=== PATIENT | male | born 1935 | race Caucasian/White ===

== ENCOUNTER 2019-06-20 10:27 | Inpatient (IN) | payer MEDICARE, BC ==
--- NOTE | 2019-06-20 11:33 | CT ---
EXAMINATION TYPE: CT brain wo con DATE OF EXAM: 06/20/2019 COMPARISON: None HISTORY: Weakness and speech difficulties. CT DLP: 1172.4 mGycm Automated exposure control for dose reduction was used. FINDINGS: There is no acute intracranial hemorrhage or midline shift identified. There is diffuse v entricular and sulcal prominence consistent with diffuse age-related cerebral atrophy. There is low- attenuation in the periventricular white matter consistent with chronic small vessel ischemic change. The globes are intact and the visualized sinuses are clear other than scant mucosal thickening in t he ethmoid sinuses. Large arachnoid granulations are seen within the frontal region. IMPRESSION: No acute intracranial hemorrhage or midline shift. There is diffuse age-related cerebra l atrophy and chronic small vessel ischemic change noted.
[2019-06-20 11:38] LABS: Basophils # (A) 0.1 k/uL (0-0.2); Basophils % (A) 1 %; Eosinophils # (A) 0.9 k/uL (0-0.7); Eosinophils % (A) 8 %; HCT 38.7 % (39.0-53.0); HGB 12.8 gm/dL (13.0-17.5); Lymphocytes # (A) 1.6 k/uL (1.0-4.8); Lymphocytes % (A) 13 %; MCH 29.5 pg (25.0-35.0); MCV 89.3 fL (80.0-100.0); Mean Platelet Volume 5.8; Monocytes # (A) 0.8 k/uL (0-1.0); Monocytes % (A) 7 %; Neutrophils # (A) 8.4 k/uL (1.3-7.7); Neutrophils % (A) 71 %; Platelet Count 356 k/uL (150-450); RBC 4.33 m/uL (4.30-5.90); RDW 14.1 % (11.5-15.5); WBC 11.8 k/uL (3.8-10.6)
--- NOTE | 2019-06-20 11:43 | XR ---
EXAMINATION TYPE: XR chest 2V DATE OF EXAM: 06/20/2019 COMPARISON: None INDICATION: Altered mental status, history of emphysema. TECHNIQUE: Frontal and lateral views of the chest are obtained. FINDINGS: The heart size is normal. The pulmonary vasculature is normal. Mild infiltrate is at the right middle lobe lung base. Lungs otherwise appear clear. There is some mi ld hyperinflation. IMPRESSION: 1. Mild infiltrate at the right lung base frontal projection. Correlate for atelectasis or mild pneum onia.
[2019-06-20 11:50] LABS: Albumin 3.7 g/dL (3.5-5.0); Calcium 9.7 mg/dL (8.4-10.2); Total Bilirubin 0.8 mg/dL (0.2-1.3); Total Protein 6.9 g/dL (6.3-8.2)
[2019-06-20 11:55] LABS: Potassium 4.7 mmol/L (3.5-5.1)
[2019-06-20 11:59] LABS: INR 0.9 (<1.2); Partial Thromboplastin Time 25.3 sec (22.0-30.0); Prothrombin Time 10.2 sec (9.0-12.0)
--- NOTE | 2019-06-20 12:52 | CT ---
EXAMINATION TYPE: CT angio head neck DATE OF EXAM: 06/20/2019 HISTORY: Weakness and speech difficulties COMPARISON: None CT DLP: 433.2 mGycm. Automated Exposure Control for Dose Reduction was Utilized. TECHNIQUE: CTA scan of the neck is performed with IV Contrast, patient injected with 65 mL of Isovue 370, axial images are obtained, coronal and sagittal reformatted images are reviewed. Three-D recons tructed images are created on an independent workstation and reviewed. Source images are reviewed. FINDINGS: Carotid/Vascular Structures: There is a three-vessel arch. Left vertebral artery is slightly more pro minent than the right. These appear to be patent to the level of the skull base. Internal carotid art eries are patent to the skull base. The carotid bifurcations are well visualized. Atheromatous plaqui ng and calcification is present. Some mild narrowing of the left proximal internal carotid artery may be present. Significant flow-limiting stenosis is not identified. Cervical of Benitez: Vertebral basilar system appears normal. Posterior cerebral vasculature is unrema rkable. Internal carotid arteries bifurcate normally into A1 and M1 segments. A2 segments are normal. The anterior communicating artery is patent. Posterior communicating arteries are not identified. IMPRESSION: 1. No flow-limiting stenosis bilateral carotid bifurcations. Mild narrowing without stenosis on the l eft is present. 2. Normal minto of [place]
[2019-06-20] MEDS ORDERED: cefTRIAXone IN SWFI 1,000 MG/10 ML SYRINGE IVP STA (13:07)
[2019-06-20] MEDS ORDERED: AZITHROMYCIN 500 MG in SODIUM CHLORIDE 0.9% 250 ML IVPB STA (13:08)
--- NOTE | 2019-06-20 13:08 | ED ---
General Adult HPI - General Chief complaint: Neuro Symptoms/Deficit Stated complaint: dysphagia Time Seen by Provider: 06/20/19 10:35 Source: patient, EMS Mode of arrival: EMS Limitations: no limitations - History of Present Illness Initial comments: The patient is an 84 year old male with past medical history of COPD, hypertension and prostate disorder presents to the emergency department with reported transient confusion and weakness. is at bedside and helps provide the history. The patient states that he was in his room attempting to make his bed when he woke up this morning. He was grabbing at the sheets with his right hand and felt as if he had normal coordination. He then felt extremely off balance. He went to the living room where he sat in a chair. attempted to talk to him however he was having aphasic speech. Because of that she did call 911 who brought the patient into the emergency room. Symptoms lasted for appro ximate 45 minutes before they spontaneously resolved. Patient arrives to the with an NIH of 0. Denies any confusion or speech difficulties at this time. He is not on any blood thinners. Denies any unilateral numbness or weakness at this time. No ripping or transitioned to his back. Denies any abdominal pain. No headaches or visual changes. Denies any fevers or neck stiffness. There are no other alleviating, precipitating or modifying factors - Related Data Home Medications Medication Instructions Recorded Confirmed Fluticasone Propionate [Flovent 2 puff INHALATION DAILY 01/06/16 06/20/19 Hfa 110 mcg] Latanoprost [Xalatan 0.005%] 1 drop BOTH EYES HS 01/06/16 06/20/19 Multivitamins, Thera [Multivitamin 1 tab PO DAILY 01/06/16 06/20/19 (formulary)] amLODIPine [Norvasc] 2.5 mg PO QAM 01/06/16 06/20/19 Aspirin EC [Ecotrin Low Dose] 162 mg PO DAILY PRN 06/20/19 06/20/19 Cyanocobalamin (Vitamin B-12) 1,000 mcg PO DAILY 06/20/19 06/20/19 [Vitamin B-12] Fish Oil/Dha/Epa [Fish Oil 1,200 1 cap PO DAILY 06/20/19 06/20/19 mg Fish Oil] Vit C/E/Zn/Coppr/Lutein/Zeaxan 1 cap PO BID 06/20/19 06/20/19 [Preservision Areds 2 Softgel] Previous Rx's Medication Instructions Recorded Clopidogrel [Plavix] 75 mg PO DAILY #21 tab 06/22/19 Allergies Allergy/AdvReac Type Severity Reaction Status Date / Time levofloxacin Allergy reacted Verified 06/20/19 12:02 with prednisone combination [id number]-[id number] Reductase AdvReac muscle pain Verified 06/20/19 12:02 Inhibitor sulfamethoxazole AdvReac Unknown Verified 06/20/19 12:02 [From Bactrim] trimethoprim [From Bactrim] AdvReac Unknown Verified 06/20/19 12:02 Review of Systems ROS Statement: Those systems with pertinent positive or pertinent negative responses have been documented in the HPI. ROS Other: All systems not noted in ROS Statement are negative. Past Medical History Past Medical History: COPD, Hypertension, Prostate Disorder Additional Past Medical History / Comment(s): AUTOIMMUNE DISORDERS, POLYMYALGIA RHEUMATICA, TEMPORAL ARTERITIS History of Any Multi-Drug Resistant Organisms: None Reported Past Surgical History: Appendectomy, Back Surgery, Tonsillectomy Additional Past Surgical History / Comment(s): MAYCOL CATARACTS Past Anesthesia/Blood Transfusion Reactions: No Reported Reaction Past Psychological History: No Psychological Hx Reported Smoking Status: Former smoker Past Alcohol Use History: None Reported Past Drug Use History: None Reported - Past Family History Father Family Medical History: Renal Disease General Exam Limitations: no limitations General appearance: alert, in no apparent distress Head exam: Present: atraumatic, normocephalic, normal inspection Eye exam: Present: normal appearance, PERRL, EOMI. Absent: scleral icterus, conjunctival injection, periorbital swelling ENT exam: Present: normal exam, mucous membranes moist Neck exam: Present: normal inspection. Absent: tenderness, meningismus, lymphadenopathy Respiratory exam: Present: normal lung sounds bilaterally. Absent: respiratory distress, wheezes, rales, rhonchi, stridor Cardiovascular Exam: Present: regular rate, normal rhythm, normal heart sounds. Absent: systolic murmur, diastolic murmur, rubs, gallop, clicks GI/Abdominal exam: Present: soft, normal bowel sounds. Absent: distended, tenderness, guarding, rebound, rigid Extremities exam: Present: normal inspection, full ROM, normal capillary refill. Absent: tenderness, pedal edema, joint swelling, calf tenderness Back exam: Present: normal inspection Neurological exam: Present: alert, oriented X3, CN II-XII intact Psychiatric exam: Present: normal affect, normal mood Skin exam: Present: warm, dry, intact, normal color. Absent: rash Course Vital Signs 06/20/19 06/20/19 06/20/19 10:35 10:37 11:00 Temperature 98.1 F Pulse Rate 75 Respiratory 18 Rate Blood Pressure 175/73 175/73 O2 Sat by Pulse 98 100 Oximetry 06/20/19 06/20/19 06/20/19 11:30 12:30 13:00 Temperature Pulse Rate 69 66 65 Respiratory 12 14 10 L Rate Blood Pressure 126/75 140/77 152/84 O2 Sat by Pulse 100 97 98 Oximetry 06/20/19 06/20/19 13:30 14:00 Temperature Pulse Rate 67 70 Respiratory 11 L 16 Rate Blood Pressure 148/80 163/78 O2 Sat by Pulse Oximetry EKG Findings - EKG Comments: EKG Findings:: EKG demonstrates normal sinus rhythm with ventricular rate of 72. DE interval 130. QRS 94. QTC 424. No acute ST segment elevations or depressions concerning for ischemic changes Medical Decision Making - Medical Decision Making Upon arrival the patient was placed in room 4. NIH is performed and is 0. Peripheral IV is established. I did recommend laboratory studies and a CT the patient's brain. CBC shows a white blood cell count of 11.8. Creatinine is 1.2 which that the patient's baseline. Troponin is negative. The patient was sent for CT of his brain which demonstrated no acute intracranial hemorrhage or midline shift. Diffuse age-related cerebral atrophy and chronic small vessel ischemic disease. I did send the patient back for a CT angiography which demonstrated no flow limiting stenosis of the bilateral carotid bifurcations. Mild narrowing without stenosis on the left. He should have serial neurologic exams which continues to demonstrate a normal neuro exam. I discussed the diagn osis, differential and treatment options. I did recommend hospitalization for neurology evaluation which patient did agree. I discussed case with Dr. sterling who accepted admission. I'll consult Dr. Valentine. Patient remained in stable condition awaiting a bed on the floor - Lab Data Result diagrams: 06/20/19 11:25 06/20/19 11:25 Lab Results 06/20/19 06/20/19 06/20/19 Range/Units 11:25 11:25 11:25 WBC 11.8 H (3.8-10.6) k/uL RBC 4.33 (4.30-5.90) m/uL Hgb 12.8 L (13.0-17.5) gm/dL Hct 38.7 L (39.0-53.0) % MCV 89.3 (80.0-100.0) fL MCH 29.5 (25.0-35.0) pg MCHC 33.0 (31.0-37.0) g/dL RDW 14.1 (11.5-15.5) % Plt Count 356 (150-450) k/uL Neutrophils % 71 % Lymphocytes % 13 % Monocytes % 7 % Eosinophils % 8 % Basophils % 1 % Neutrophils # 8.4 H (1.3-7.7) k/uL Lymphocytes # 1.6 (1.0-4.8) k/uL Monocytes # 0.8 (0-1.0) k/uL Eosinophils # 0.9 H (0-0.7) k/uL Basophils # 0.1 (0-0.2) k/uL PT 10.2 (9.0-12.0) sec INR 0.9 (<1.2) APTT 25.3 (22.0-30.0) sec Sodium 139 (137-145) mmol/L Potassium 4.7 (3.5-5.1) mmol/L Chloride 104 (98-107) mmol/L Carbon Dioxide 26 (22-30) mmol/L Anion Gap 9 mmol/L BUN 24 H (9-20) mg/dL Creatinine 1.28 H (0.66-1.25) mg/dL Est GFR (CKD-EPI)AfAm 58 (>60 ml/min/1.73 sqM) Est GFR (CKD-EPI)NonAf 50 (>60 ml/min/1.73 sqM) Glucose 92 (74-99) mg/dL Estimated Ave Glu mg/dL Hemoglobin A1c (4.0-6.0) % Calcium 9.7 (8.4-10.2) mg/dL Total Bilirubin 0.8 (0.2-1.3) mg/dL AST 27 (17-59) U/L ALT 22 (21-72) U/L Alkaline Phosphatase 64 (38-126) U/L Troponin I (0.000-0.034) ng/mL Total Protein 6.9 (6.3-8.2) g/dL Albumin 3.7 (3.5-5.0) g/dL Triglycerides (<150) mg/dL Cholesterol (<200) mg/dL LDL Cholesterol, Calc (0-99) mg/dL HDL Cholesterol (40-60) mg/dL TSH (0.465-4.680) mIU/L 06/20/19 06/20/19 06/20/19 Range/Units 11:25 11:25 11:25 WBC (3.8-10.6) k/uL RBC (4.30-5.90) m/uL Hgb (13.0-17.5) gm/dL Hct (39.0-53.0) % MCV (80.0-100.0) fL MCH (25.0-35.0) pg MCHC (31.0-37.0) g/dL RDW (11.5-15.5) % Plt Count (150-450) k/uL Neutrophils % % Lymphocytes % % Monocytes % % Eosinophils % % Basophils % % Neutrophils # (1.3-7.7) k/uL Lymphocytes # (1.0-4.8) k/uL Monocytes # (0-1.0) k/uL Eosinophils # (0-0.7) k/uL Basophils # (0-0.2) k/uL PT (9.0-12.0) sec INR (<1.2) APTT (22.0-30.0) sec Sodium (137-145) mmol/L Potassium (3.5-5.1) mmol/L Chloride (98-107) mmol/L Carbon Dioxide (22-30) mmol/L Anion Gap mmol/L BUN (9-20) mg/dL Creatinine (0.66-1.25) mg/dL Est GFR (CKD-EPI)AfAm (>60 ml/min/1.73 sqM) Est GFR (CKD-EPI)NonAf (>60 ml/min/1.73 sqM) Glucose (74-99) mg/dL Estimated Ave Glu mg/dL 123 Hemoglobin A1c 5.9 (4.0-6.0) % Calcium (8.4-10.2) mg/dL Total Bilirubin (0.2-1.3) mg/dL AST (17-59) U/L ALT (21-72) U/L Alkaline Phosphatase (38-126) U/L Troponin I <0.012 (0.000-0.034) ng/mL Total Protein (6.3-8.2) g/dL Albumin (3.5-5.0) g/dL Triglycerides 105 (<150) mg/dL Cholesterol 178 (<200) mg/dL LDL Cholesterol, Calc 101 H (0-99) mg/dL HDL Cholesterol 56 (40-60) mg/dL TSH (0.465-4.680) mIU/L 06/20/19 Range/Units 11:25 WBC (3.8-10.6) k/uL RBC (4.30-5.90) m/uL Hgb (13.0-17.5) gm/dL Hct (39.0-53.0) % MCV (80.0-100.0) fL MCH (25.0-35.0) pg MCHC (31.0-37.0) g/dL RDW (11.5-15.5) % Plt Count (150-450) k/uL Neutrophils % % Lymphocytes % % Monocytes % % Eosinophils % % Basophils % % Neutrophils # (1.3-7.7) k/uL Lymphocytes # (1.0-4.8) k/uL Monocytes # (0-1.0) k/uL Eosinophils # (0-0.7) k/uL Basophils # (0-0.2) k/uL PT (9.0-12.0) sec INR (<1.2) APTT (22.0-30.0) sec Sodium (137-145) mmol/L Potassium (3.5-5.1) mmol/L Chloride (98-107) mmol/L Carbon Dioxide (22-30) mmol/L Anion Gap mmol/L BUN (9-20) mg/dL Creatinine (0.66-1.25) mg/dL Est GFR (CKD-EPI)AfAm (>60 ml/min/1.73 sqM) Est GFR (CKD-EPI)NonAf (>60 ml/min/1.73 sqM) Glucose (74-99) mg/dL Estimated Ave Glu mg/dL Hemoglobin A1c (4.0-6.0) % Calcium (8.4-10.2) mg/dL Total Bilirubin (0.2-1.3) mg/dL AST (17-59) U/L ALT (21-72) U/L Alkaline Phosphatase (38-126) U/L Troponin I (0.000-0.034) ng/mL Total Protein (6.3-8.2) g/dL Albumin (3.5-5.0) g/dL Triglycerides (<150) mg/dL Cholesterol (<200) mg/dL LDL Cholesterol, Calc (0-99) mg/dL HDL Cholesterol (40-60) mg/dL TSH 3.660 (0.465-4.680) mIU/L Disposition Clinical Impression: TIA (transient ischemic attack) Disposition: ADMITTED IP TO THIS [facility] Condition: Serious Is patient prescribed a controlled substance at d/c from ED?: No Decision to Admit Reason: Admit from EC Decision Date: 06/20/19 Decision Time: 13:10
[2019-06-20] MEDS ORDERED: NALOXONE 0.4 MG/ML 1 ML VIAL IV PRN (13:10)
[2019-06-20] MEDS ORDERED: ASPIRIN 81 MG PO PRN (13:11)
[2019-06-20] MEDS: VIT A,C & E-LUTEIN-MINERALS 1 EACH TAB PO SCH (20:33)
[2019-06-20] MEDS: amLODIPine 2.5 MG TAB PO SCH (20:33)
[2019-06-20] MEDS: LATANOPROST 0.005% OPHTH DROPS 2.5 ML BTL BOTH EYES SCH (20:33)
[2019-06-20] MEDS: ENOXAPARIN 40 MG/0.4 ML SYRINGE SQ SCH (21:56)
--- NOTE | 2019-06-20 22:01 | P.HPIM ---
History of Present Illness H&P Date: 06/20/19 Chief Complaint: Changes speech and discoordination History of presenting complaint: This is a very pleasant 84-year-old patient of Dr. Cruz. Chronic stable medical conditions include COPD, polymyalgia rheumatica, temporal arteritis, osteoarthritis. This morning patient got up to stroke but the bed sheets straight on his back. He felt he could not coordinate his left hand with the bed sheet. Went to the bathroom and then came downstairs he told the was not feeling right. His speech was off. Patient had a baseline does a lot of trouble with his balance and does use a cane and a walker. No change in vision. Daughter baseline patient has trouble with his vision EMS was called out. A symptoms got a bit better. Patient not falling to one side. Does no headache. Initial computed tomography scan of the brain and CT angiogram of the brain did not show any acute event. Neurology was consulted patient admitted for the same. Review of systems: GEN.: None EYES: None HEENT: Hearted vision chronically NECK: None RESPIRATORY: None CARDIOVASCULAR: None GASTROINTESTINAL: None GENITOURINARY: None MUSCULOSKELETAL: [Arthritic pain in the joints LYMPHATICS: None HEMATOLOGICAL: None PSYCHIATRY: None NEUROLOGICAL: Forgetful, altered gait Social history: No alcohol. Smoked for 35 years stopped in 1985. . Retired electro mechanical engineer. Does use a cane and a walker. Physical examination: VITAL SIGNS: 98.1, 75, 18, 175/73, 100% room air GENERAL: BMI 21.4, sitting up in bed, comfortable. EYES: Pupils equal. Conjunctiva normal. HEENT: External appearance of nose and ears normal, oral cavity grossly normal. NECK: JVD not raised; masses not palpable. HEART: First and second heart sounds are normal; no edema. LUNGS: Respiratory rate normal; decreased breath sounds. ABDOMEN: Soft, nontender, liver spleen not palpable, no masses palpable. PSYCH: Alert and oriented x3; mood and affect normal. NEUROLOGICAL: Left-sided dysdiadochokinesia, past-pointing, poor coordination the left like t. LYMPHATICS: No lymph nodes palpable in the axilla and neck INVESTIGATIONS, reviewed in the clinical context: White count 11.8 hemoglobin 12.8 platelets 356 potassium 4.7 bun 24 creatinine 1.28 Labs from December 2015 show bun of 29 and creatinine 1.4 Computed tomography scan brain-chronic age-related changes CT angiogram of the head and neck-normal grindstone of [place]. No critical stenosis. EKG tracing personally reviewed by me-normal sinus rhythm Chest x-ray film personally reviewed by me-possibly chronic finding Assessment: -This is a patient this morning was finding difficulty coordinating his left hand on to his bed sheets also slurring of his speech. Patient has chronic gait dysfunction does no change in vision or headache. On clinical examination has left-sided cerebellar signs. Suspect underlying cerebellar infarct. Findings overall does suffer the present time. 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 We will add Lipitor. Neurology is consulted. PTOT consulted and ordered a MRI of the brain. Care was discussed with the patient. Questions were answered. Past Medical History Past Medical History: COPD, Hypertension, Prostate Disorder Additional Past Medical History / Comment(s): AUTOIMMUNE DISORDERS, POLYMYALGIA RHEUMATICA, TEMPORAL ARTERITIS History of Any Multi-Drug Resistant Organisms: None Reported Past Surgical History: Appendectomy, Back Surgery, Tonsillectomy Additional Past Surgical History / Comment(s): MAYCOL CATARACTS Past Anesthesia/Blood Transfusion Reactions: No Reported Reaction Past Psychological History: No Psychological Hx Reported Smoking Status: Former smoker Past Alcohol Use History: None Reported Past Drug Use History: None Reported - Past Family History Father Family Medical History: Renal Disease Medications and Allergies Home Medications Medication Instructions Recorded Confirmed Type Fluticasone Propionate [Flovent 2 puff INHALATION DAILY 01/06/16 06/20/19 History Hfa 110mcg] Latanoprost [Xalatan 0.005%] 1 drop BOTH EYES HS 01/06/16 06/20/19 History Multivitamins, Thera [Multivitamin] 1 tab PO DAILY 01/06/16 06/20/19 History amLODIPine [Norvasc] 2.5 mg PO QAM 01/06/16 06/20/19 History Aspirin EC [Ecotrin Low Dose] 162 mg PO DAILY PRN 06/20/19 06/20/19 History Cyanocobalamin (Vitamin B-12) 1,000 mcg PO DAILY 06/20/19 06/20/19 History [Vitamin B-12] Fish Oil/Dha/Epa [Fish Oil 1,200 1 cap PO DAILY 06/20/19 06/20/19 History mg Fish Oil] Vit C/E/Zn/Coppr/Lutein/Zeaxan 1 cap PO BID 06/20/19 06/20/19 History [Preservision Areds 2 Softgel] Allergies Allergy/AdvReac Type Severity Reaction Status Date / Time levofloxacin Allergy reacted Verified 06/20/19 12:02 with prednisone combination Xphwwhk-Ceb-Woq Reductase AdvReac muscle pain Verified 06/20/19 12:02 Inhibitor sulfamethoxazole AdvReac Unknown Verified 06/20/19 12:02 [From Bactrim] trimethoprim [From Bactrim] AdvReac Unknown Verified 06/20/19 12:02 Physical Exam Vitals: Vital Signs Temp Pulse Pulse Resp BP BP Pulse Ox 06/20/19 14:45 73 16 06/20/19 14:14 98.6 F 73 16 100/49 97 06/20/19 14:00 70 16 163/78 06/20/19 13:30 67 11 L 148/80 06/20/19 13:00 65 10 L 152/84 98 06/20/19 12:30 66 14 140/77 97 06/20/19 11:30 69 12 126/75 100 06/20/19 11:00 175/73 06/20/19 10:37 98.1 F 75 18 175/73 100 06/20/19 10:35 98 Intake and Output 06/20/19 06/20/19 06/20/19 06:59 14:59 22:59 Intake Total 240 Balance 240 Intake: Oral 240 Other: Voiding Method Toilet Weight 69.4 kg 67.6 kg Results CBC & Chem 7: 06/20/19 11:25 06/20/19 11:25 Labs: Abnormal Lab Results - Last 24 Hours (Table) 06/20/19 06/20/19 Range/Units 11:25 11:25 WBC 11.8 H (3.8-10.6) k/uL Hgb 12.8 L (13.0-17.5) gm/dL Hct 38.7 L (39.0-53.0) % Neutrophils # 8.4 H (1.3-7.7) k/uL Eosinophils # 0.9 H (0-0.7) k/uL BUN 24 H (9-20) mg/dL Creatinine 1.28 H (0.66-1.25) mg/dL Thrombosis Risk Factor Assmnt - Choose All That Apply Each Factor Represents 1 point: Abnormal pulmonary function (COPD) Each Risk Factor Represents 3 Points: Age 75 years or older Thrombosis Risk Factor Assessment Total Risk Factor Score: 4 Thrombosis Risk Factor Assessment Level: Moderate Risk
[2019-06-21] MEDS: FLUTICASONE 110 MCG INHALER INHALATION SCH (08:19)
[2019-06-21] MEDS ORDERED: NON FORMULARY DRUG (Fish Oil/Dha/Epa [Fish Oil 1,200 Mg Fish Oil] 1 CAP) PO SCH (09:00)
[2019-06-21] MEDS ORDERED: amLODIPine 2.5 MG TAB PO SCH (09:00)
--- NOTE | 2019-06-21 09:09 | MR ---
"EXAMINATION TYPE: MR brain wo/w con DATE OF EXAM: 06/21/2019 COMPARISON: CT brain from yesterday. HISTORY: CVA, abnormal CT, possible cerebellar infarct. Neuro deficit acute stroke, weakness and spee ch difficulties. TECHNIQUE: Multiplanar, multisequence images of the brain and brainstem is performed without and with IV contras t, utilizing 7 mL intravenous Gadavist . FINDINGS: Diffusion weighted images demonstrate areas of increased signal on diffusion-weighted image s with diminished signal on ADC mapping involving the left parietal cortical area subcentimeter in si ze with a larger 10 mm area in the deep parietal occipital region that shows T2 hyperintensity and T1 hypointensity without enhancement consistent with evolving acute infarct in the posterior watershed distribution. No restricted diffusion noted in the cerebellum. There is no worrisome extra-axial fluid collection. There is ventricular and sulcal prominence. Findi ngs most prominent over the bilateral high frontal and parietal lobes. Scattered foci of T2 hyperinte nsity throughout the white matter bilaterally are present. Midline structures demonstrate normal morphology. The craniocervical junction appears within normal limits. Post contrast images demonstrate no abnormal enhancement. The dural venous sinuses appear pa tent. Mild mucosal thickening inferiorly in the maxillary sinuses. Nasal septum slightly deviated rig ht of midline. Some artifact distortion at the level of globes. IMPRESSION: 1. 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 No acute cerebellar infarct. 2. Background to moderate moderate diffuse cerebral atrophy most prominent over the bilateral high fr ontal and parietal lobes and mild to moderate moderate chronic small vessel ischemic change is redemo nstrated. A Yellow level critical message alert has been initiated for Jarrod Atkins MD via the [employer] 36 0 | Critical Results System on 06/21/2019 9:07 AM. This message alert has been sent to Jarrod Atkins MD via the preferences provided by the clinician for the receipt of Radiology Critical Findings. [facility] ID [id number]."
[2019-06-21 09:50] LABS: Cholesterol 178 mg/dL (<200); HDL Cholesterol 56 mg/dL (40-60); LDL Cholesterol,Calculated 101 mg/dL (0-99); Triglycerides 105 mg/dL (<150)
[2019-06-21] MEDS: CYANOCOBALAMIN 500 MCG TAB PO SCH (09:57)
[2019-06-21] MEDS: VIT A,C & E-LUTEIN-MINERALS 1 EACH TAB PO SCH ×2 (09:57→21:46)
[2019-06-21] MEDS: MULTIVITAMINS, THERA 1 EACH TAB PO SCH (09:57)
[2019-06-21] MEDS: CLOPIDOGREL 75 MG TAB PO SCH (11:22)
[2019-06-21] MEDS: amLODIPine 2.5 MG TAB PO SCH (11:29)
--- NOTE | 2019-06-21 13:00 | ECHOF ---
Referral Reason:stroke MEASUREMENTS -------- HEIGHT: 177.8 cm WEIGHT: 67.1 kg BP: 135/75 RVIDd: 3.5 cm (< 3.3) IVSd: 1.3 cm (0.6 - 1.1) LVIDd: 4.4 cm (3.9 - 5.3) LVPWd: 1.3 cm (0.6 - 1.1) IVSs: 1.8 cm LVIDs: 2.7 cm LVPWs: 1.7 cm LA Diam: 3.4 cm (2.7 - 3.8) LAESV Index (A-L): 23.41 ml/m Ao Diam: 2.9 cm (2.0 - 3.7) AV Cusp: 2.1 cm (1.5 - 2.6) MV EXCURSION: 16.703 mm (> 18.000) MV EF SLOPE: 64 mm/s (70 - 150) EPSS: 0.4 cm MV E [place]: 0.76 m/s MV DecT: 321 ms MV A [place]: 0.98 m/s MV E/A Ratio: 0.77 AR PHT: 592 ms RAP: 5.00 mmHg RVSP: 22.12 mmHg FINDINGS -------- Sinus rhythm. This was a technically good study. The left ventricular size is normal. There is mild concentric left ventricular hypertrophy. Overa ll left ventricular systolic function is normal with, an EF between 55 - 60 %. The right ventricle is mildly enlarged. Normal LA size by volume 22+/-6 ml/m2. The right atrium is normal in size. Contrast study was performed with 2 iv injections of 8 ccs of agitated normal saline, at rest, and po st-Valsalva. Interatrial and interventricular septum intact. There is mild aortic valve sclerosis. Trace to mild aortic regurgitation. There is trace mitral regurgitation. Mild tricuspid regurgitation present. Right ventricular systolic pressure is normal at < 35 mmHg. Trace/mild (physiologic) pulmonic regurgitation. The aortic root size is normal. Normal inferior vena cava with normal inspiratory collapse consistent with estimated right atrial pre ssure of 5 mmHg. There is no pericardial effusion. CONCLUSIONS -------- 1. Sinus rhythm. 2. This was a technically good study. 3. The left ventricular size is normal. 4. There is mild concentric left ventricular hypertrophy. 5. Overall left ventricular systolic function is normal with, an EF between 55 - 60 %. 6. The right ventricle is mildly enlarged. 7. Normal LA size by volume 22+/-6 ml/m2. 8. The right atrium is normal in size. 9. Contrast study was performed with 2 iv injections of 8 ccs of agitated normal saline, at rest, and post-Valsalva. 10. Interatrial and interventricular septum intact. 11. There is mild aortic valve sclerosis. 12. Trace to mild aortic regurgitation. 13. There is trace mitral regurgitation. 14. Mild tricuspid regurgitation present. 15. Right ventricular systolic pressure is normal at < 35 mmHg. 16. Trace/mild (physiologic) pulmonic regurgitation. 17. The aortic root size is normal. 18. Normal inferior vena cava with normal inspiratory collapse consistent with estimated right atrial pressure of 5 mmHg. 19. There is no pericardial effusion. SUMMER COUNSELOR: Talita David RDCS
--- NOTE | 2019-06-21 13:04 | P.CNNES ---
History of Present Illness Consult date: 06/21/19 Reason for Consult: Concern for stroke Chief complaint: Transient confusion and weakness History of Present Illness: HISTORY OF PRESENT ILLNESS: Thank you for allowing me to evaluate Mr. Imer Sharp. Mr. Morgan is an 84 year-old man with PMhx of COPD, hypertension, polymyalgia rheumatica, temporal arteritis, presenting to [facility] for transient confusion and weakness. patient states that he woke up yesterday morning around 8:30, was making his bed, and at one point, he bend down to grab the bedsheet, but he couldn't. He went down the stairs to where his was, and his noticed that patient was having difficulty with speech, so they decided to bring patient to the hospital. By the time patient came to ER, he didn't have any aphasia or weakness. Patient states that he uses a walker at baseline, has been having some difficulty with balance. Denies urinary incontinence. Patient endorses having had the flu, took his last tamiflu last Monday. Otherwise, denies any headache, nausea, vomiting, dizziness, double vision (patient has blurry vision at baseline, s/p bilateral cataract surgery with transplant), numbness or tingling, diarrhea, constipation, chest pain or SOB. PAST MEDICAL HISTORY: COPD, hypertension, polymyalgia rheumatica, temporal arteritis PAST SURGICAL HISTORY: Appendectomy, tonsillectomy, bilateral cataract surgery, back surgery HOME MEDICATIONS: Flovent, multivitamin, amlodipine, aspirin, vitamin B12, fish oil ALLERGIES: Levofloxacin, statins, sulfamethoxazole, trimethoprim SOCIAL HISTORY: Former smoker. quit at age 28, but he used to smoke up to 1ppd as a teenager. FAMILY HISTORY: Father had a renal disease REVIEW OF SYSTEMS: The 14 systems are reviewed and no additional points are identified compared to the review of systems documented history and physical PHYSICAL EXAMINATION: VITAL SIGNS: T 98.3 HR 69 RR 16 BP 135/75 O2 sat 98% on RA GEN.: NAD, pleasant and cooperative HEENT: NCAT, sclera without icterus NECK: Supple SKIN AND EXTREMITIES: Warm to touch, no edema NEURO: MENTAL STATUS: Patient alert and oriented to self, place, time. Able to name the current president. Speech fluent, able to name and repeat, following all commands readily. No right and left disorientation. Able to spell WORLD backwards. Difficulty with serial 7's. (Per speech therapy, patient had difficulty with drawing a clock and place hour/minute hands at 10:10 CRANIAL NERVES II THROUGH XII: II: Pupils are equal and reactive to light symmetrically. Visual guerrero are intact but endorsing blurry vision. III, IV, : No ptosis. Extraocular movements full. No nystagmus. V: Facial sensation intact from V1-3. VII. No clear facial asymmetry. VIII: Hearing intact to finger rub bilaterally but able to hear better in R than L. IX, X: Symmetric palate elevation. XI: Shoulder shrug intact. XII: Tongue midline without fasciculation or atrophy. MOTOR: Normal bulk/tone. Mild drift up of his RUE. Strength is 5/5 throughout all 4 extremities. SENSORY: Intact to light touch in all 4 extremities. Romberg is positive REFLEXES: 2+ throughout. Toes are downgoing. No clonus. Keeley's is absent COORDINATION: Finger to nose intact. No dysmetria. GAIT: Narrow-based, difficulty initiating walking but once initiated, able to walk somewhat but takes very short strides (not magnetic, however). DIAGNOSTIC TESTING: LABORATORY: WBC 11.8 hemoglobin 12.8 platelets 356 PT 10.2 INR 0.9 sodium 139 potassium 4.7 chloride 104 bicarb 26 BUN 24 creatinine 1.28 glucose 92 AST 27 ALT 22 64 TROPONIN <0.012 Total cholesterol 178 LDL 101 HDL 56 triglycerides 105 TSH 3.660 IMAGING: CT head without contrast 06/20/2019: No acute intracranial hemorrhage or midline shift. There is diffuse age-related cerebral atrophy and chronic small vessel ischemic change noted CTA head and neck within without contrast 06/20/2019: No flow-limiting stenosis bilateral carotid bifurcations. Mild narrowing without stenosis in the left present. Normal [place]. MRI brain without contrast 06/21/2019: Areas of acute infarct left parietal occipital region posterior watershed distribution noted as detailed above. No acute cerebellar infarct. Moderate diffuse cerebral atrophy most prominent over the bilateral high frontal and parietal lobes and mild to moderate chronic small vessel ischemic changes were demonstrated Cardiac monitoring: No obvious atrial arrhythmia since admission. Transthoracic echocardiogram with bubble study 06/21/19: SR. LV, LA, RA sizes are normal. RV is mildly enlarged. EF 55-60%. ASSESSMENT: 84 year-old man with PMhx of COPD, hypertension, polymyalgia rheumatica, tempora l arteritis, presenting to [facility] for transient confusion and weakness. On exam, patient just with drifting up of his RUE, which could be found in parietal strokes. MRI brain w/o contrast demonstrated an acute L parietal/occipital region infarct. Stroke etiology small vessel disease vs. RECOMMENDATIONS: 1. ASA 81mg qday and Plavix 75mg qday (dual antiplatelet therapy for 3 weeks per POINT trial, then Aspirin 81mg qday only) 2. Patient is allergic to statins. Will not start statin therapy 3. Patient can start his BP medication on Monday. 4. PT/OT/ST per protocol 5. Discussed with patient about stroke prevention guidelines. Medication compliance, hypertension/diabetes control, lifestyle changes including no smoking, drinking in moderation, losing weight, exercising, eating healthier 6. Patient needs to follow up with neurologist as outpatient with her 2-3 weeks of discharge 7. Discussed ED precautions: return to ED if having severe headache, nausea, vomiting, vision deficits, speech difficulty, facial asymmetry, weakness, numbness or tingling 8. Neurology is not available over the weekend in-house. However, feel free to [employer] message me over the weekend if you have any questions or concerns Past Medical History Past Medical History: COPD, Hypertension, Prostate Disorder Additional Past Medical History / Comment(s): AUTOIMMUNE DISORDERS, POLYMYALGIA RHEUMATICA, TEMPORAL ARTERITIS History of Any Multi-Drug Resistant Organisms: None Reported Past Surgical History: Appendectomy, Back Surgery, Tonsillectomy Additional Past Surgical History / Comment(s): MAYCOL CATARACTS Past Anesthesia/Blood Transfusion Reactions: No Reported Reaction Past Psychological History: No Psychological Hx Reported Smoking Status: Former smoker Past Alcohol Use History: None Reported Past Drug Use History: None Reported - Past Family History Father Family Medical History: Renal Disease Medications and Allergies Home Medications Medication Instructions Recorded Confirmed Type Fluticasone Propionate [Flovent 2 puff INHALATION DAILY 01/06/16 06/20/19 History Hfa 110mcg] Latanoprost [Xalatan 0.005%] 1 drop BOTH EYES HS 01/06/16 06/20/19 History Multivitamins, Thera [Multivitamin] 1 tab PO DAILY 01/06/16 06/20/19 History amLODIPine [Norvasc] 2.5 mg PO QAM 01/06/16 06/20/19 History Aspirin EC [Ecotrin Low Dose] 162 mg PO DAILY PRN 06/20/19 06/20/19 History Cyanocobalamin (Vitamin B-12) 1,000 mcg PO DAILY 06/20/19 06/20/19 History [Vitamin B-12] Fish Oil/Dha/Epa [Fish Oil 1,200 1 cap PO DAILY 06/20/19 06/20/19 History mg Fish Oil] Vit C/E/Zn/Coppr/Lutein/Zeaxan 1 cap PO BID 06/20/19 06/20/19 History [Preservision Areds 2 Softgel] Allergies Allergy/AdvReac Type Severity Reaction Status Date / Time levofloxacin Allergy reacted Verified 06/20/19 12:02 with prednisone combination [id number] Reductase AdvReac muscle pain Verified 06/20/19 12:02 Inhibitor sulfamethoxazole AdvReac Unknown Verified 06/20/19 12:02 [From Bactrim] trimethoprim [From Bactrim] AdvReac Unknown Verified 06/20/19 12:02 Physical Examination - Vital Signs Vital Signs: Vital Signs Temp Pulse Pulse Pulse Resp BP BP 06/21/19 08:00 98.3 F 69 16 135/75 06/21/19 03:22 98.3 F 74 20 127/57 06/21/19 00:00 98.6 F 74 18 134/68 06/20/19 20:00 98.2 F 77 77 16 139/72 06/20/19 14:45 73 16 06/20/19 14:14 98.6 F 73 16 100/49 06/20/19 14:00 70 16 163/78 06/20/19 13:30 67 11 L 148/80 06/20/19 13:00 65 10 L 152/84 06/20/19 12:30 66 14 140/77 06/20/19 11:30 69 12 126/75 06/20/19 11:00 175/73 06/20/19 10:37 98.1 F 75 18 175/73 06/20/19 10:35 Pulse Ox 06/21/19 08:00 98 06/21/19 03:22 96 06/21/19 00:00 96 06/20/19 20:00 95 06/20/19 14:45 06/20/19 14:14 97 12/05/19 14:00 06/20/19 13:30 06/20/19 13:00 98 06/20/19 12:30 97 06/20/19 11:30 100 06/20/19 11:00 06/20/19 10:37 100 06/20/19 10:35 98 Intake and Output 06/20/19 06/21/19 06/21/19 22:59 06:59 14:59 Intake Total 480 222 Balance 480 222 Intake: Oral 480 222 Other: Voiding Method Toilet Toilet Toilet # Voids 1 2 Weight 67.6 kg 67.5 kg Results - Laboratory Findings CBC and BMP: 06/20/19 11:25 06/20/19 11:25 Abnormal Lab Findings: Abnormal Labs 06/20/19 06/20/19 06/20/19 11:25 11:25 11:25 WBC 11.8 H Hgb 12.8 L Hct 38.7 L Neutrophils # 8.4 H Eosinophils # 0.9 H BUN 24 H Creatinine 1.28 H LDL Cholesterol, Calc 101 H
[2019-06-21 20:58] LABS: Hemoglobin A1C 5.9 % (4.0-6.0)
[2019-06-21] MEDS: LATANOPROST 0.005% OPHTH DROPS 2.5 ML BTL BOTH EYES SCH (21:46)
[2019-06-21] MEDS: ENOXAPARIN 40 MG/0.4 ML SYRINGE SQ SCH (21:46)
[2019-06-22] MEDS: amLODIPine 2.5 MG TAB PO SCH (08:31)
[2019-06-22] MEDS: CYANOCOBALAMIN 500 MCG TAB PO SCH (08:31)
[2019-06-22] MEDS: MULTIVITAMINS, THERA 1 EACH TAB PO SCH (08:31)
[2019-06-22] MEDS: VIT A,C & E-LUTEIN-MINERALS 1 EACH TAB PO SCH (08:32)
[2019-06-22] MEDS: CLOPIDOGREL 75 MG TAB PO SCH (08:32)
[2019-06-22] MEDS ORDERED: ASPIRIN 81 MG PO SCH (09:00)
[2019-06-22 12:38] VITALS: BP 158/75; PULSE 65; RESP 18; TEMP 98.2
[2019-06-22] MEDS: FLUTICASONE 110 MCG INHALER INHALATION SCH (12:49)
--- NOTE | 2019-07-15 01:12 | P.PN ---
Subjective Progress Note Date: 06/21/19 Principal diagnosis: Slurred speech This is a very pleasant 84-year-old patient of Dr. Cruz. Chronic stable medical conditions include COPD, polymyalgia rheumatica, temporal arteritis, osteoarthritis. This morning patient got up to stroke but the bed sheets straight on his back. He felt he could not coordinate his left hand with the bed sheet. Went to the bathroom and then came downstairs he told the was not feeling right. His speech was off. Patient had a baseline does a lot of trouble with his balance and does use a cane and a walker. No change in vision. Daughter baseline patient has trouble with his vision EMS was called out. A symptoms got a bit better. Patient not falling to one side. Does no headache. Initial computed tomography scan of the brain and CT angiogram of the brain did not show any acute event. Neurology was consulted patient admitted for the same. Review of systems: GEN.: None EYES: None HEENT: Hearted vision chronically NECK: None RESPIRATORY: None CARDIOVASCULAR: None GASTROINTESTINAL: None GENITOURINARY: None MUSCULOSKELETAL: [Arthritic pain in the joints LYMPHATICS: None HEMATOLOGICAL: None PSYCHIATRY: None NEUROLOGICAL: Forgetful, altered gait INVESTIGATIONS, reviewed in the clinical context: White count 11.8 hemoglobin 12.8 platelets 356 potassium 4.7 bun 24 creatinine 1.28 Labs from December 2015 show bun of 29 and creatinine 1.4 Computed tomography scan brain-chronic age-related changes CT angiogram of the head and neck-normal [place]. No critical stenosis. EKG tracing personally reviewed by me-normal sinus rhythm Chest x-ray film personally reviewed by me-possibly chronic finding 06/21/2019 Patient is having drifting up of his right upper extremity with possible parietal stroke. MRI of the brain without contrast demonstrated acute left parietal/occipital region infarct. Etiology probably small vessel ischemic disease. Patient is being continued on aspirin and Plavix. Lids will be continued for 3 weeks. Neurology has seen the patient. Patient is improving symptomatically. No complaints of chest pain or shortness of breath. No nausea vomiting or abdominal pain. Patient wishes to be discharged home soon. Current medications reviewed. Objective - Vital Signs Vital signs: Vital Signs Temp 98.3 F 06/21/19 08:00 Pulse 69 06/21/19 08:00 Resp 20 06/21/19 08:00 BP 135/75 06/21/19 08:00 Pulse Ox 98 06/21/19 08:00 Intake & Output 06/20/19 06/21/19 06/21/19 18:59 06:59 18:59 Intake Total 240 240 222 Balance 240 240 222 Weight 67.6 kg 67.5 kg Intake: Oral 240 240 222 Other: Voiding Method Toilet Toilet Toilet # Voids 2 - Exam Physical examination: VITAL SIGNS: 98.1, 75, 18, 175/73, 100% room air GENERAL: BMI 21.4, sitting up in bed, comfortable. EYES: Pupils equal. Conjunctiva normal. HEENT: External appearance of nose and ears normal, oral cavity grossly normal. NECK: JVD not raised; masses not palpable. HEART: First and second heart sounds are normal; no edema. LUNGS: Respiratory rate normal; decreased breath sounds. ABDOMEN: Soft, nontender, liver spleen not palpable, no masses palpable. PSYCH: Alert and oriented x3; mood and affect normal. NEUROLOGICAL: Left-sided dysdiadochokinesia, past-pointing, poor coordination the left like t. LYMPHATICS: No lymph nodes palpable in the axilla and neck - Labs CBC & Chem 7: 06/20/19 11:25 06/20/19 11:25 Labs: Abnormal Lab Results - Last 24 Hours (Table) 06/20/19 06/20/19 06/20/19 Range/Units 11:25 11:25 11:25 WBC 11.8 H (3.8-10.6) k/uL Hgb 12.8 L (13.0-17.5) gm/dL Hct 38.7 L (39.0-53.0) % Neutrophils # 8.4 H (1.3-7.7) k/uL Eosinophils # 0.9 H (0-0.7) k/uL BUN 24 H (9-20) mg/dL Creatinine 1.28 H (0.66-1.25) mg/dL LDL Cholesterol, Calc 101 H (0-99) mg/dL Assessment and Plan Assessment: Assessment: -Acute left parietal ischemic CVA. This is a patient this morning was finding difficulty coordinating his left hand on to his bed sheets also slurring of his speech. Patient has chronic gait dysfunction does no change in vision or headache. 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 Added Plavix for 3 weeks. We will add Lipitor. Neurology is following. Continue to titrate blood pressure medications. PTOT consulted and ordered a MRI of the brain. MRI of the brain showed left parietal infarct. Care was discussed with the patient. Questions were answered. return to ED if having severe headache, nausea, vomiting, vision deficits, speech difficulty, facial asymmetry, weakness, numbness or tingling. Discussed with patient about stroke prevention guidelines. Medication compliance, hypertension/diabetes control, lifestyle changes including no smoking, drinking in moderation, losing weight, exercising, eating healthier. Time with Patient: Greater than 30
--- NOTE | 2019-07-15 01:14 | P.DS ---
Providers Date of admission: 06/21/19 12:02 Expected date of discharge: 06/22/19 Attending physician: Jarrod Atkins Consults: 06/20/19 13:11 Consult Physician Urgent Consulting Provider: Danyell Valentine Consult Reason/Comments: possible tia Do you want consulting provider notified?: Yes Primary [facility] Course: Discharge diagnosis -Acute left parietal ischemic CVA. This is a patient this morning was finding difficulty coordinating his left hand on to his bed sheets also slurring of his speech. Patient has chronic gait dysfunction does no change in vision or headache. -Chronic polymyalgia rheumatica with temporal arteritis causing proximal muscle weakness -COPD in an ex-smoker -Essential hypertension it may be noted that patient did miss his blood pressure medication this morning has the morning reading was high -Chronic gait dysfunction with proximal myopathy Hospital course This is a very pleasant 84-year-old patient of Dr. Cruz. Chronic stable medical conditions include COPD, polymyalgia rheumatica, temporal arteritis, osteoarthritis. This morning patient got up to stroke but the bed sheets straight on his back. He felt he could not coordinate his left hand with the bed sheet. Went to the bathroom and then came downstairs he told the was not feeling right. His speech was off. Patient had a baseline does a lot of trouble with his balance and does use a cane and a walker. No change in vision. Daughter baseline patient has trouble with his vision EMS was called out. A symptoms got a bit better. Patient not falling to one side. Does no headache. Initial computed tomography scan of the brain and CT angiogram of the brain did not show any acute event. Neurology was consulted patient admitted for the same. Review of systems: GEN.: None EYES: None HEENT: Hearted vision chronically NECK: None RESPIRATORY: None CARDIOVASCULAR: None GASTROINTESTINAL: None GENITOURINARY: None MUSCULOSKELETAL: [Arthritic pain in the joints LYMPHATICS: None HEMATOLOGICAL: None PSYCHIATRY: None NEUROLOGICAL: Forgetful, altered gait INVESTIGATIONS, reviewed in the clinical context: White count 11.8 hemoglobin 12.8 platelets 356 potassium 4.7 bun 24 creatinine 1.28 Labs from December 2015 show bun of 29 and creatinine 1.4 Computed tomography scan brain-chronic age-related changes CT angiogram of the head and neck-normal [place]. No critical stenosis. EKG tracing personally reviewed by me-normal sinus rhythm Chest x-ray film personally reviewed by me-possibly chronic finding 06/21/2019 Patient is having drifting up of his right upper extremity with possible parietal stroke. MRI of the brain without contrast demonstrated acute left parietal/occipital region infarct. Etiology probably small vessel ischemic disease. Patient is being continued on aspirin and Plavix. Lids will be continued for 3 weeks. Neurology has seen the patient. Patient is improving symptomatically. No complaints of chest pain or shortness of breath. No nausea vomiting or abdominal pain. Patient wishes to be discharged home soon. 06/22/2019 Patient is improving symptomatically. No other acute overnight issues. Continue with current DL antiplatelet therapy. Tolerating oral diet. Patient is on aspirin. Added Plavix for 3 weeks. We will add Lipitor. Neurology is following. Continue to titrate blood pressure medications. PTOT consulted and ordered a MRI of the brain. MRI of the brain showed left parietal infarct. Care was discussed with the patient. Questions were answered. return to ED if having severe headache, nausea, vomiting, vision deficits, speech difficulty, facial asymmetry, weakness, numbness or tingling. Discussed with patient about stroke prevention guidelines. Medication compliance, hypertension/diabetes control, lifestyle changes including no smoking, drinking in moderation, losing weight, exercising, eating healthier. GENERAL: BMI 21.4, sitting up in bed, comfortable. EYES: Pupils equal. Conjunctiva normal. HEENT: External appearance of nose and ears normal, oral cavity grossly normal. NECK: JVD not raised; masses not palpable. HEART: First and second heart sounds are normal; no edema. LUNGS: Respiratory rate normal; decreased breath sounds. ABDOMEN: Soft, nontender, liver spleen not palpable, no masses palpable. PSYCH: Alert and oriented x3; mood and affect normal. NEUROLOGICAL: Left-sided dysdiadochokinesia, past-pointing, poor coordination. LYMPHATICS: No lymph nodes palpable in the axilla and neck Discharge vitals reviewed. Patient Condition at Discharge: Good Plan - Discharge Summary Discharge Rx Participant: No New Discharge Prescriptions: New Clopidogrel [Plavix] 75 mg PO DAILY #21 tab Continue amLODIPine [Norvasc] 2.5 mg PO QAM Multivitamins, Thera [Multivitamin (formulary)] 1 tab PO DAILY Latanoprost [Xalatan 0.005%] 1 drop BOTH EYES HS Fluticasone Propionate [Flovent Hfa 110 mcg] 2 puff INHALATION DAILY Vit C/E/Zn/Coppr/Lutein/Zeaxan [Preservision Areds 2 Softgel] 1 cap PO BID Fish Oil/Dha/Epa [Fish Oil 1,200 mg Fish Oil] 1 cap PO DAILY Cyanocobalamin (Vitamin B-12) [Vitamin B-12] 1,000 mcg PO DAILY Aspirin EC [Ecotrin Low Dose] 162 mg PO DAILY PRN PRN Reason: Pain Discharge Medication List Fluticasone Propionate [Flovent Hfa 110 mcg] 2 puff INHALATION DAILY 01/06/16 [History] Latanoprost [Xalatan 0.005%] 1 drop BOTH EYES HS 01/06/16 [History] Multivitamins, Thera [Multivitamin (formulary)] 1 tab PO DAILY 01/06/16 [History] amLODIPine [Norvasc] 2.5 mg PO QAM 01/06/16 [History] Aspirin EC [Ecotrin Low Dose] 162 mg PO DAILY PRN 06/20/19 [History] Cyanocobalamin (Vitamin B-12) [Vitamin B-12] 1,000 mcg PO DAILY 06/20/19 [History] Fish Oil/Dha/Epa [Fish Oil 1,200 mg Fish Oil] 1 cap PO DAILY 06/20/19 [History] Vit C/E/Zn/Coppr/Lutein/Zeaxan [Preservision Areds 2 Softgel] 1 cap PO BID 06/20/19 [History] Clopidogrel [Plavix] 75 mg PO DAILY #21 tab 06/22/19 [Rx] Follow up Appointment(s)/Referral(s): Yovani Everett MD [Primary Care Provider] - 1-2 days Patient Instructions/Handouts: Transient Ischemic Attack (DC) Activity/Diet/Wound Care/Special Instructions: Obtain order from primary care doctor for outpatient speech therapy, then call [facility] speech pathologist to set up speech therapy appointment ([phone]) Discharge Disposition: HOME SELF-CARE Care Plan Goals (MU): Diet and activity as tolerated.
== END 2019-06-22 14:55 | disposition home or self-care (01) | DRG 66 ==
LOC: EC 10:27 → 3SCARD 13:10 → OBSVTOIN 06-21 12:02
PROVIDERS: ADMIT Hospitalist; ATTEND Hospitalist
DX: I63.9 Cerebral infarction, unspecified (principal); M31.5 Giant cell arteritis with polymyalgia rheumatica; J44.9 Chronic obstructive pulmonary disease, unspecified; R13.10 Dysphagia, unspecified; R47.01 Aphasia; I10 Essential (primary) hypertension; R53.1 Weakness; R40.2362 Coma scale, best motor response, obeys commands, at arrival to emergency department; R40.2142 Coma scale, eyes open, spontaneous, at arrival to emergency department; R40.2252 Coma scale, best verbal response, oriented, at arrival to emergency department; R29.700 NIHSS score 0; N42.9 Disorder of prostate, unspecified; M19.90 Unspecified osteoarthritis, unspecified site; R26.9 Unspecified abnormalities of gait and mobility; Z79.82 Long term (current) use of aspirin; Z79.51 Long term (current) use of inhaled steroids; Z79.899 Other long term (current) drug therapy; Z87.891 Personal history of nicotine dependence; Z98.42 Cataract extraction status, left eye; Z98.41 Cataract extraction status, right eye; Z88.1 Allergy status to other antibiotic agents; Z88.2 Allergy status to sulfonamides; Z88.8 Allergy status to other drugs, medicaments and biological substances; Z84.1 Family history of disorders of kidney and ureter
CPT/HCPCS: 36415; 70450; 70496; 70498; 70553; 71046; 80053; 80061; 83036; 84443; 84484; 85025; 85610; 85730; 87040; 93005; 93306; 94640; 96365; 96375; 99285

== ENCOUNTER 2022-07-31 13:16 | Inpatient (IN) | payer MEDICARE, BC ==
[2022-07-31 13:35] LABS: Glucose,Whole Blood 134 mg/dL (70-110)
--- NOTE | 2022-07-31 14:01 | ED ---
Syncope HPI - General Chief Complaint: Dizziness Stated Complaint: syncope Time Seen by Provider: 07/31/22 13:19 Source: patient Mode of arrival: EMS Limitations: no limitations - History of Present Illness Initial Comments: This patient is an 87-year-old man who presents with complaint of having had a passing out episode at [employer]. The patient states he had been in his usual state of health until yesterday. He states that he didn't sleep well last night, but denies specific complaints such as pain or dyspnea. 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 He is having hard time describing exactly what it is having but he just didn't feel right so he sat down. The patient's noted that he passed out and that she was not able to arouse him for up to a minute or so. There was no tonic-clonic activity. No loss continence. He did not fall or head injury. The patient states currently that he feels well he is back at his baseline. On review of systems, patient does acknowledge productive cough which is been going on for some days MD Complaint: loss of consciousness -: minutes(s) Prodromal Symptoms: other -: second(s) Witnessed: yes - by bystander Injuries Sustained Associated with Event: None Current Symptoms: back to baseline Treatments Prior to Arrival: none - Related Data Home Medications Medication Instructions Recorded Confirmed Latanoprost [Xalatan 0.005%] 1 drop BOTH EYES HS 01/06/16 07/31/22 Multivitamins, Thera [Multivitamin 1 tab PO DAILY 01/06/16 07/31/22 (formulary)] Aspirin EC [Ecotrin Low Dose] 81 mg PO Q48H 06/20/19 07/31/22 Cyanocobalamin (Vitamin B-12) 1,000 mcg PO DAILY 06/20/19 07/31/22 [Vitamin B-12] Fish Oil/Dha/Epa [Fish Oil 1,200 1 cap PO DAILY 06/20/19 07/31/22 mg Fish Oil] Vit C/E/Zn/Coppr/Lutein/Zeaxan 1 cap PO DAILY 06/20/19 07/31/22 [Preservision Areds 2 Softgel] Ferrous Sulfate [Feosol] 325 mg PO DAILY 07/31/22 07/31/22 Flovent (Unknown Dose) 1 puff INHALATION DIRECTED 07/31/22 07/31/22 Levothyroxine Sodium [Synthroid] 25 mcg PO DAILY 07/31/22 07/31/22 amLODIPine [Norvasc] 5 mg PO DAILY 07/31/22 07/31/22 Allergies Allergy/AdvReac Type Severity Reaction Status Date / Time levofloxacin Allergy reacted Verified 07/31/22 15:49 with prednisone combination Vucerst-XRE-QuD Reductase AdvReac muscle pain Verified 07/31/22 15:49 Inhibitor [Qxqcigh-Tkg-Qdg Reductase Inhibitor] sulfamethoxazole AdvReac Unknown Verified 07/31/22 15:49 [From Bactrim] trimethoprim [From Bactrim] AdvReac Unknown Verified 07/31/22 15:49 Review of Systems ROS Statement: Those systems with pertinent positive or pertinent negative responses have been documented in the HPI. ROS Other: All systems not noted in ROS Statement are negative. Constitutional: Denies: fever, chills Respiratory: Reports: as per HPI, cough. Denies: dyspnea Cardiovascular: Reports: syncope. Denies: chest pain, palpitations, orthopnea, edema Gastrointestinal: Denies: abdominal pain, nausea, vomiting Genitourinary: Denies: dysuria, hematuria Musculoskeletal: Denies: back pain Skin: Denies: rash Neurological: Denies: headache, weakness, numbness Past Medical History Past Medical History: COPD, Hypertension, Prostate Disorder Additional Past Medical History / Comment(s): AUTOIMMUNE DISORDERS, POLYMYALGIA RHEUMATICA, TEMPORAL ARTERITIS History of Any Multi-Drug Resistant Organisms: None Reported Past Surgical History: Appendectomy, Back Surgery, Tonsillectomy Additional Past Surgical History / Comment(s): MAYCOL CATARACTS Past Anesthesia/Blood Transfusion Reactions: No Reported Reaction Past Psychological History: No Psychological Hx Reported Smoking Status: Never smoker Past Alcohol Use History: Occasional Past Drug Use History: None Reported - Past Family History Father Family Medical History: Renal Disease General Exam Limitations: no limitations General appearance: alert, in no apparent distress Head exam: Present: atraumatic, normocephalic Eye exam: Present: normal appearance. Absent: scleral icterus, conjunctival injection Neck exam: Present: normal inspection. Absent: full ROM Respiratory exam: Present: normal lung sounds bilaterally. Absent: respiratory distress, wheezes, rales, rhonchi, stridor Cardiovascular Exam: Present: regular rate, normal rhythm, normal heart sounds. Absent: systolic murmur, diastolic murmur, rubs, gallop GI/Abdominal exam: Present: soft. Absent: distended, tenderness, guarding, rebound, rigid, mass Extremities exam: Present: normal inspection, normal capillary refill. Absent: pedal edema, calf tenderness Back exam: Present: normal inspection. Absent: CVA tenderness (R), CVA tenderness (L) Neurological exam: Present: alert, oriented X3, CN II-XII intact. Absent: motor sensory deficit Skin exam: Present: warm, dry, intact, normal color. Absent: rash Course Vital Signs 07/31/22 07/31/22 07/31/22 13:18 14:10 15:00 Temperature 97.6 F Pulse Rate 59 L 65 68 Respiratory 18 18 18 Rate Blood Pressure 147/68 131/63 120/63 O2 Sat by Pulse 98 96 97 Oximetry 07/31/22 07/31/22 07/31/22 16:00 16:45 17:47 Temperature 98.2 F Pulse Rate 66 61 65 Respiratory 18 18 18 Rate Blood Pressure 128/62 120/60 124/71 O2 Sat by Pulse 97 98 97 Oximetry EKG Findings - EKG Results: EKG: interpreted by MINO LEDBETTER, sinus rhythm (Rate 60 bpm), normal axis, normal QRS, normal ST/T, no acute changes - [place], Pacemaker, Normal: Normal tracing: normal tracing Medical Decision Making - Medical Decision Making This patient is an 87-year-old man presenting after syncopal episode today in [employer]. He has had moderate productive cough going back a number days. Chest x-ray interpreted by me shows no cardiomegaly, congestion, infiltrate. CT angiography is obtained after patient has elevated d-dimer. Interpreted the study as showing right-sided infiltrates. There is also right upper cavitary lesion. Was pt. sent in by a medical professional or institution? @ -No Did you speak to anyone other than the patient for history? @ -[Family Did you review nursing and triage notes? @ -[agree Were old charts reviewed? @ -[No Differential Diagnosis? @ -[Differential Chest Pain: Stable Angina, Unstable Angina, STEMI, NSTEMI Aortic Dissection, Pneumothorax, Musculoskeletal, Esophageal Spasm GERD, Cholecystitis, Pancreatitis, Zoster, this is not meant to be an all-inclusive list. Differential diagnosis syncope includes cardiac arrhythmia, vasovagal syncope, hypovolemia, amongst other conditions EKG interpreted by me (3pts min.)? @ -[See chart X-rays interpreted by me (1pt min.)? @ -[See chart CT interpreted by me (1pt min.)? @ -[See chart U/S interpreted by me (1pt. min.)? @ -[none] What testing was considered but not performed? (CT, X-rays, U/S, labs)? Why? @ [No What meds were considered but not given? Why? @ -[none] Did you discuss the management of the patient with other professionals? @ -[Admitting provider Did you reconcile home meds? @ -[none] Was smoking cessation discussed for >3mins.? @ -[none] Was critical care preformed (if so, how long)? @ -[none] Were there social determinants of health that impacted care today? How? (Homelessness, low income, unemployed, alcoholism, drug addiction, transportation, low edu. Level, literacy, decrease access to med. care, fpc, rehab)? @ -[No Was there de-escalation of care discussed even if they declined? (Discuss DNR or withdrawal of care, Hospice)? @ -[Discuss DNR or withdrawal of care, Hospice?] What co-morbidities impacted this encounter? (DM, HTN, Smoking, COPD, CAD, Cancer, CVA, Hep., AIDS, mental health diagnosis, sleep apnea, morbid obesity)? @ -[DM, HTN, Smoking, COPD, CAD, Cancer, CVA, Hep., AIDS, mental health diagnosis, sleep apnea, morbid obesity?] Was patient admitted / discharged? @ -[Admitted Undiagnosed new problem with uncertain prognosis? @ -[none] Drug Therapy requiring intensive monitoring for toxicity (Heparin, Nitro, Insuli n, Cardizem)? @ -[none] Were any procedures done? @ -[none] Diagnosis/symptom? @ -[1. Acute syncope, uncomplicated 2. Pneumonia, acute, uncomplicated 3. Cavitary lung lesion, unspecified age, uncomplicated Acute, or Chronic, or Acute on Chronic? @ -[default] Uncomplicated (without systemic symptoms) or Complicated (systemic symptoms)? @ -[default] Side effects of treatment? @ -[none] Exacerbation, Progression, or Severe Exacerbation] @ -[no] Poses a threat to life or bodily function? @ -[no] - Lab Data Result diagrams: 07/31/22 17:42 07/31/22 17:42 Lab Results 07/31/22 07/31/22 07/31/22 Range/Units 13:34 14:10 14:10 WBC 15.3 H (3.8-10.6) k/uL RBC 4.36 (4.30-5.90) m/uL Hgb 13.4 (13.0-17.5) gm/dL Hct 41.5 (39.0-53.0) % MCV 95.1 (80.0-100.0) fL MCH 30.6 (25.0-35.0) pg MCHC 32.2 (31.0-37.0) g/dL RDW 13.9 (11.5-15.5) % Plt Count 266 (150-450) k/uL MPV 8.4 Neutrophils % 88 % Lymphocytes % 5 % Monocytes % 4 % Eosinophils % 1 % Basophils % 0 % Neutrophils # 13.4 H (1.3-7.7) k/uL Lymphocytes # 0.8 L (1.0-4.8) k/uL Monocytes # 0.7 (0-1.0) k/uL Eosinophils # 0.2 (0-0.7) k/uL Basophils # 0.1 (0-0.2) k/uL PT 10.5 (9.0-12.0) sec INR 1.0 (<1.2) APTT 21.8 L (22.0-30.0) sec D-Dimer 1.22 H (<0.60) mg/L FEU Sodium (137-145) mmol/L Potassium (3.5-5.1) mmol/L Chloride (98-107) mmol/L Carbon Dioxide (22-30) mmol/L Anion Gap mmol/L BUN (9-20) mg/dL Creatinine (0.66-1.25) mg/dL Est GFR (CKD-EPI)AfAm (>60 ml/min/1.73 sqM) Est GFR (CKD-EPI)NonAf (>60 ml/min/1.73 sqM) Glucose (74-99) mg/dL POC Glucose (mg/dL) 134 H (70-110) mg/dL POC Glu Licensed Embalmer Supervisor ID Graham Arias Calcium (8.4-10.2) mg/dL Total Bilirubin (0.2-1.3) mg/dL AST (17-59) U/L ALT (4-49) U/L Alkaline Phosphatase (38-126) U/L Troponin I (0.000-0.034) ng/mL Total Protein (6.3-8.2) g/dL Albumin (3.5-5.0) g/dL 07/31/22 07/31/22 Range/Units 14:10 14:10 WBC (3.8-10.6) k/uL RBC (4.30-5.90) m/uL Hgb (13.0-17.5) gm/dL Hct (39.0-53.0) % MCV (80.0-100.0) fL MCH (25.0-35.0) pg MCHC (31.0-37.0) g/dL RDW (11.5-15.5) % Plt Count (150-450) k/uL MPV Neutrophils % % Lymphocytes % % Monocytes % % Eosinophils % % Basophils % % Neutrophils # (1.3-7.7) k/uL Lymphocytes # (1.0-4.8) k/uL Monocytes # (0-1.0) k/uL Eosinophils # (0-0.7) k/uL Basophils # (0-0.2) k/uL PT (9.0-12.0) sec INR (<1.2) APTT (22.0-30.0) sec D-Dimer (<0.60) mg/L FEU Sodium 140 (137-145) mmol/L Potassium 4.4 (3.5-5.1) mmol/L Chloride 107 (98-107) mmol/L Carbon Dioxide 23 (22-30) mmol/L Anion Gap 10 mmol/L BUN 28 H (9-20) mg/dL Creatinine 1.57 H (0.66-1.25) mg/dL Est GFR (CKD-EPI)AfAm 45 (>60 ml/min/1.73 sqM) Est GFR (CKD-EPI)NonAf 39 (>60 ml/min/1.73 sqM) Glucose 131 H (74-99) mg/dL POC Glucose (mg/dL) (70-110) mg/dL POC Glu Licensed Embalmer Supervisor ID Calcium 9.0 (8.4-10.2) mg/dL Total Bilirubin 0.6 (0.2-1.3) mg/dL AST 21 (17-59) U/L ALT 15 (4-49) U/L Alkaline Phosphatase 69 (38-126) U/L Troponin I <0.012 (0.000-0.034) ng/mL Total Protein 6.4 (6.3-8.2) g/dL Albumin 3.7 (3.5-5.0) g/dL Disposition Clinical Impression: Syncope, Pneumonia, Cavitary lesion of lung Disposition: ADMITTED IP TO THIS HOSP Condition: Good Is patient prescribed a controlled substance at d/c from ED?: No
[2022-07-31 14:18] LABS: Basophils # (A) 0.1 k/uL (0-0.2); Basophils % (A) 0 %; Eosinophils # (A) 0.2 k/uL (0-0.7); Eosinophils % (A) 1 %; HCT 41.5 % (39.0-53.0); HGB 13.4 gm/dL (13.0-17.5); Lymphocytes # (A) 0.8 k/uL (1.0-4.8); Lymphocytes % (A) 5 %; MCH 30.6 pg (25.0-35.0); MCHC 32.2 g/dL (31.0-37.0); MCV 95.1 fL (80.0-100.0); Mean Platelet Volume 8.4; Monocytes # (A) 0.7 k/uL (0-1.0); Monocytes % (A) 4 %; Neutrophils # (A) 13.4 k/uL (1.3-7.7); Neutrophils % (A) 88 %; Platelet Count 266 k/uL (150-450); RBC 4.36 m/uL (4.30-5.90); RDW 13.9 % (11.5-15.5); WBC 15.3 k/uL (3.8-10.6)
[2022-07-31 14:28] LABS: Albumin 3.7 g/dL (3.5-5.0); Potassium 4.4 mmol/L (3.5-5.1); Total Bilirubin 0.6 mg/dL (0.2-1.3); Total Protein 6.4 g/dL (6.3-8.2)
--- NOTE | 2022-07-31 14:29 | XR ---
EXAMINATION TYPE: XR chest 2V DATE OF EXAM: 07/31/2022 COMPARISON: 06/20/2019 HISTORY: Syncope TECHNIQUE: FINDINGS: There is no heart failure. There is some coarse density at the lateral right lung base. The re are no hilar masses bony thorax is intact. There are chest leads. Heart size is normal. IMPRESSION: There are some chronic density right lung base consistent with scarring which is not sign ificantly different than old exam. There is clearing of the mild infiltrate left lung base compared t o the old exam.
[2022-07-31 14:41] LABS: Prothrombin Time 10.5 sec (9.0-12.0)
[2022-07-31 14:46] LABS: Partial Thromboplastin Time 21.8 sec (22.0-30.0)
[2022-07-31] MEDS ORDERED: SODIUM CHLORIDE 0.9% 500 ML 500 ML IV STA (15:25)
--- NOTE | 2022-07-31 15:59 | CT ---
EXAMINATION TYPE: CT chest angio for PE DATE OF EXAM: 07/31/2022 COMPARISON: None HISTORY: elevated d-dimer CT DLP: 249.8 mGycm Automated exposure control for dose reduction was used. CONTRAST: Performed with IV Contrast, patient injected with 80cc mL of Isovue 370. There are 3-D postprocess images. Images obtained from the thoracic inlet to the diaphragm with the I V contrast. There is a large hiatal hernia. There is airspace infiltrate right lower lobe posteriorly. There is m ild coarsening of interstitial markings. There is a 1.5 cm cavitating infiltrate in the posterior rig ht upper lobe adjacent to the major fissure. No mediastinal adenopathy. There are no hilar masses. There is normal contrast opacification of the p ulmonary arteries. No filling defect thoracic aorta is atheromatous. Heart size is normal. No pericar dial effusion. There is 3.5 cm cyst in the anterior right lobe of the liver. Spleen is intact. The th oracic spine is intact. Sternum is intact. IMPRESSION: No evidence of pulmonary embolism. There is some patchy right lower lobe pneumonia. Small cavitating infiltrate right upper lobe. Follow-up is recommended.
[2022-07-31] MEDS ORDERED: AZITHROMYCIN 500 MG in SODIUM CHLORIDE 0.9% 250 ML IVPB STA (16:11)
[2022-07-31] MEDS ORDERED: PNEUMONIA PROTOCOL UTILIZED 1 EACH MISC PO PRN (16:11)
[2022-07-31] MEDS ORDERED: CALCIUM CARBONATE 500 MG CHEWABLE PO PRN (16:16)
[2022-07-31 17:56] LABS: Basophils % (A) 0 %; Eosinophils # (A) 0.1 k/uL (0-0.7); Eosinophils % (A) 1 %; HCT 38.1 % (39.0-53.0); HGB 12.3 gm/dL (13.0-17.5); Lymphocytes # (A) 0.8 k/uL (1.0-4.8); Lymphocytes % (A) 7 %; MCH 30.6 pg (25.0-35.0); MCHC 32.3 g/dL (31.0-37.0); MCV 94.7 fL (80.0-100.0); Mean Platelet Volume 7.3; Monocytes # (A) 0.5 k/uL (0-1.0); Monocytes % (A) 4 %; Neutrophils # (A) 9.6 k/uL (1.3-7.7); Neutrophils % (A) 86 %; Platelet Count 262 k/uL (150-450); RBC 4.02 m/uL (4.30-5.90); WBC 11.2 k/uL (3.8-10.6)
[2022-07-31 18:20] LABS: African American GFR (CKD) 51 (>60 ml/min/1.73 sqM); Anion Gap 8 mmol/L; Blood Urea Nitrogen 27 mg/dL (9-20); Calcium 8.4 mg/dL (8.4-10.2); Carbon Dioxide 25 mmol/L (22-30); Chloride 107 mmol/L (98-107); Glucose 99 mg/dL (74-99); Non-African American GFR(CKD) 44 (>60 ml/min/1.73 sqM); Sodium 140 mmol/L (137-145)
[2022-07-31] MEDS ORDERED: LATANOPROST 0.005% OPHTH DROPS 2.5 ML BTL BOTH EYES SCH (21:00)
[2022-08-01] MEDS ORDERED: LEVOTHYROXINE 25 MCG TAB PO SCH (06:30)
--- NOTE | 2022-08-01 07:00 | XR ---
EXAMINATION TYPE: XR chest 2V DATE OF EXAM: 08/01/2022 6:23 AM COMPARISON: Chest radiographs from 07/31/2022, CTA chest 07/31/2022 TECHNIQUE: XR chest 2V Frontal and lateral views of the chest. CLINICAL INDICATION:Male, 87 years old with history of pneumonia; FINDINGS: Lungs/Pleura: Patchy consolidation is demonstrated within the right lower lobe. No pneumothorax or pl eural effusion. Flattening of the hemidiaphragms with lucency of the upper lungs. Pulmonary vascularity: Unremarkable. Heart/mediastinum: Cardiomediastinal silhouette is unremarkable. Musculoskeletal: Multiple level degenerative disc disease changes seen throughout the spine. IMPRESSION: 1. Similar patchy consolidation within the right lower lobe concerning for pneumonia. 2. COPD changes.
[2022-08-01] MEDS ORDERED: PANTOPRAZOLE 40 MG TABLET PO SCH (07:30)
[2022-08-01] MEDS ORDERED: MULTIVITAMINS, THERA 1 EACH TAB PO SCH (09:00)
[2022-08-01] MEDS ORDERED: CYANOCOBALAMIN 500 MCG TAB PO SCH (09:00)
[2022-08-01] MEDS ORDERED: amLODIPine 5 MG TAB PO SCH (09:00)
[2022-08-01] MEDS ORDERED: AZITHROMYCIN 500 MG TAB PO SCH (09:00)
[2022-08-01] MEDS ORDERED: ASPIRIN 81 MG PO SCH (09:00)
[2022-08-01] MEDS ORDERED: FERROUS SULFATE 325 MG TAB PO SCH (09:00)
[2022-08-01] MEDS ORDERED: FLOVENT INHALATION SCH (12:00)
[2022-08-01 13:25] VITALS: BP 160/68; PULSE 65; RESP 16; TEMP 97.5
--- NOTE | 2022-08-01 13:27 | P.DS ---
Providers Date of admission: 07/31/22 16:15 Attending physician: Faisal Michael Consults: 08/01/22 12:26 Consult Physician Routine Consulting Provider: Elpidio Pulido Consult Reason/Comments: lung lesion Do you want consulting provider notified?: Yes Primary care physician: Yvoani Everett [facility] Course: Refer to my history of present illness for further details Patient Condition at Discharge: Good Plan - Discharge Summary New Discharge Prescriptions: No Action Multivitamins, Thera [Multivitamin (formulary)] 1 tab PO DAILY Latanoprost [Xalatan 0.005%] 1 drop BOTH EYES HS Vit C/E/Zn/Coppr/Lutein/Zeaxan [Preservision Areds 2 Softgel] 1 cap PO DAILY Fish Oil/Dha/Epa [Fish Oil 1,200 mg Fish Oil] 1 cap PO DAILY Cyanocobalamin (Vitamin B-12) [Vitamin B-12] 1,000 mcg PO DAILY Aspirin EC [Ecotrin Low Dose] 81 mg PO Q48H Levothyroxine Sodium [Synthroid] 25 mcg PO DAILY Flovent (Unknown Dose) 1 puff INHALATION DIRECTED Ferrous Sulfate [Feosol] 325 mg PO DAILY amLODIPine [Norvasc] 5 mg PO DAILY Discharge Medication List Latanoprost [Xalatan 0.005%] 1 drop BOTH EYES HS 01/06/16 [History] Multivitamins, Thera [Multivitamin (formulary)] 1 tab PO DAILY 01/06/16 [History] Aspirin EC [Ecotrin Low Dose] 81 mg PO Q48H 06/20/19 [History] Cyanocobalamin (Vitamin B-12) [Vitamin B-12] 1,000 mcg PO DAILY 06/20/19 [History] Fish Oil/Dha/Epa [Fish Oil 1,200 mg Fish Oil] 1 cap PO DAILY 06/20/19 [History] Vit C/E/Zn/Coppr/Lutein/Zeaxan [Preservision Areds 2 Softgel] 1 cap PO DAILY 06/20/19 [History] Ferrous Sulfate [Feosol] 325 mg PO DAILY 07/31/22 [History] Flovent (Unknown Dose) 1 puff INHALATION DIRECTED 07/31/22 [History] Levothyroxine Sodium [Synthroid] 25 mcg PO DAILY 07/31/22 [History] amLODIPine [Norvasc] 5 mg PO DAILY 07/31/22 [History] Follow up Appointment(s)/Referral(s): Yovani Everett MD [Primary Care Provider] - 3 Days Ishaan Alas DO [Doctor of Osteopathic Medicine] - 1 Week Ambulatory/Diagnostic Orders: Ambulatory Miscellaneous Order [MISC.AMB] Location: None Selected
--- NOTE | 2022-08-01 13:27 | P.HPIM ---
History of Present Illness Patient is a pleasant 87-year-old male came in after a syncopal episode which lasted for 2-3 minutes without any seizure-like activity tongue biting bowel or bladder patterns. Patient has a normal EKG here echo cardiac exam for 2018 did not show any valvular abnormalities. Patient also had an elevated d-dimer mild leukocytosis without any fever. Chest x-ray showed a small lesion because of which CT of the chest was obtained whichany PE but did show a cavitary lesion, patient does have history of COPD and was a smoker in the past. Patient doesn't have any fever chills patient does have chronic kidney disease with baseline creatinine of around 1.3 present creatinine is around 1.4. REVIEW OF SYSTEMS: CONSTITUTIONAL: No fever, no malaise, no fatigue. HEENT: No recent visual problems or hearing problems. Denied any sore throat. CARDIOVASCULAR: No chest pain, orthopnea, PND, no palpitations. PULMONARY: No shortness of breath, no cough, no hemoptysis. GASTROINTESTINAL: No diarrhea, no nausea, no vomiting, no abdominal pain. NEUROLOGICAL: No headaches, no weakness, no numbness. HEMATOLOGICAL: Denies any bleeding or petechiae. GENITOURINARY: Denies any burning micturition, frequency, or urgency. MUSCULOSKELETAL/RHEUMATOLOGICAL: Denies any joint pain, swelling, or any muscle pain. ENDOCRINE: Denies any polyuria or polydipsia. The rest of the 14-point review of systems is negative. PHYSICAL EXAMINATION: GENERAL: The patient is alert and oriented x3, not in any acute distress. Thin built HEENT: Pupils are round and equally reacting to light. EOMI. No scleral icterus. No conjunctival pallor. Normocephalic, atraumatic. No pharyngeal erythema. No thyromegaly. CARDIOVASCULAR: S1 and S2 present. No murmurs, rubs, or gallops. PULMONARY: Chest is clear to auscultation, no wheezing or crackles. ABDOMEN: Soft, nontender, nondistended, normoactive bowel sounds. No palpable organomegaly. MUSCULOSKELETAL: No joint swelling or deformity. EXTREMITIES: No cyanosis, clubbing, or pedal edema. NEUROLOGICAL: Gross neurological examination did not reveal any focal deficits. SKIN: No rashes. Assessment and plan -Syncope patient was monitored overnight without any significant changes in the telemetry, PE was ruled out patient had a old record that did not show any significant abnormality we'll order an outpatient echocardiogram follow with the cardiology as an outpatient. Etiology of syncope is not clear if he continues to have these episodes patient may need Holter monitor or an event monitor -Cavitary lesion on the CT of the chest will consult pulmonology and differential is malignancy, there is no evidence of pneumonia pro calcitonin is not high.-COPD without any acute exacerbation -Hypertension Abdomen benign prostatic hypertrophy - Patient will be discharged after evaluation by pulmonary Past Medical History Past Medical History: COPD, Hypertension, Prostate Disorder Additional Past Medical History / Comment(s): AUTOIMMUNE DISORDERS, POLYMYALGIA RHEUMATICA, TEMPORAL ARTERITIS History of Any Multi-Drug Resistant Organisms: None Reported Past Surgical History: Appendectomy, Back Surgery, Tonsillectomy Additional Past Surgical History / Comment(s): MAYCOL CATARACTS Past Anesthesia/Blood Transfusion Reactions: No Reported Reaction Past Psychological History: No Psychological Hx Reported Smoking Status: Never smoker Past Alcohol Use History: Occasional Past Drug Use History: None Reported - Past Family History Father Family Medical History: Renal Disease Medications and Allergies Home Medications Medication Instructions Recorded Confirmed Type Latanoprost [Xalatan 0.005%] 1 drop BOTH EYES HS 01/06/16 07/31/22 History Multivitamins, Thera [Multivitamin 1 tab PO DAILY 01/06/16 07/31/22 History (formulary)] Aspirin EC [Ecotrin Low Dose] 81 mg PO Q48H 06/20/19 07/31/22 History Cyanocobalamin (Vitamin B-12) 1,000 mcg PO DAILY 06/20/19 07/31/22 History [Vitamin B-12] Fish Oil/Dha/Epa [Fish Oil 1,200 1 cap PO DAILY 06/20/19 07/31/22 History mg Fish Oil] Vit C/E/Zn/Coppr/Lutein/Zeaxan 1 cap PO DAILY 06/20/19 07/31/22 History [Preservision Areds 2 Softgel] Ferrous Sulfate [Feosol] 325 mg PO DAILY 07/31/22 07/31/22 History Flovent (Unknown Dose) 1 puff INHALATION DIRECTED 07/31/22 07/31/22 History Levothyroxine Sodium [Synthroid] 25 mcg PO DAILY 07/31/22 07/31/22 History amLODIPine [Norvasc] 5 mg PO DAILY 07/31/22 07/31/22 History Allergies Allergy/AdvReac Type Severity Reaction Status Date / Time levofloxacin Allergy reacted Verified 07/31/22 15:49 with prednisone combination Hufzmjj-IRQ-ZzN Reductase AdvReac muscle pain Verified 07/31/22 15:49 Inhibitor [Qtfpsde-Ijy-Hbv Reductase Inhibitor] sulfamethoxazole AdvReac Unknown Verified 07/31/22 15:49 [From Bactrim] trimethoprim [From Bactrim] AdvReac Unknown Verified 07/31/22 15:49 Physical Exam Vitals: Vital Signs Temp Pulse Pulse Resp BP BP Pulse Ox 08/01/22 13:17 97.5 F L 65 16 160/68 97 08/01/22 07:26 98.0 F 63 18 149/64 96 08/01/22 03:47 99.1 F 67 18 125/51 95 08/01/22 02:00 98.9 F 68 16 133/55 96 07/31/22 20:00 67 18 07/31/22 18:37 97.8 F 67 18 152/61 97 07/31/22 17:47 98.2 F 65 18 124/71 97 07/31/22 16:45 61 18 120/60 98 07/31/22 16:00 66 18 128/62 97 07/31/22 15:00 68 18 120/63 97 07/31/22 14:10 65 18 131/63 96 Intake and Output 07/31/22 08/01/22 08/01/22 22:59 06:59 14:59 Intake Total 400 Balance 400 Intake: Oral 400 Other: Voiding Method Toilet # Voids 4 5 1 # Bowel Movements 0 1 Weight 63.503 kg Results CBC & Chem 7: 07/31/22 17:42 07/31/22 17:42 Labs: Abnormal Lab Results - Last 24 Hours (Table) 07/31/22 07/31/22 07/31/22 Range/Units 13:34 14:10 14:10 WBC 15.3 H (3.8-10.6) k/uL RBC (4.30-5.90) m/uL Hgb (13.0-17.5) gm/dL Hct (39.0-53.0) % Neutrophils # 13.4 H (1.3-7.7) k/uL Lymphocytes # 0.8 L (1.0-4.8) k/uL APTT 21.8 L (22.0-30.0) sec D-Dimer 1.22 H (<0.60) mg/L FEU BUN (9-20) mg/dL Creatinine (0.66-1.25) mg/dL Glucose (74-99) mg/dL POC Glucose (mg/dL) 134 H (70-110) mg/dL Procalcitonin (0.02-0.09) ng/mL 07/31/22 07/31/22 07/31/22 Range/Units 14:10 17:42 17:42 WBC 11.2 H (3.8-10.6) k/uL RBC 4.02 L (4.30-5.90) m/uL Hgb 12.3 L (13.0-17.5) gm/dL Hct 38.1 L (39.0-53.0) % Neutrophils # 9.6 H (1.3-7.7) k/uL Lymphocytes # 0.8 L (1.0-4.8) k/uL APTT (22.0-30.0) sec D-Dimer (<0.60) mg/L FEU BUN 28 H (9-20) mg/dL Creatinine 1.57 H (0.66-1.25) mg/dL Glucose 131 H (74-99) mg/dL POC Glucose (mg/dL) (70-110) mg/dL Procalcitonin 0.17 H (0.02-0.09) ng/mL 07/31/22 Range/Units 17:42 WBC (3.8-10.6) k/uL RBC (4.30-5.90) m/uL Hgb (13.0-17.5) gm/dL Hct (39.0-53.0) % Neutrophils # (1.3-7.7) k/uL Lymphocytes # (1.0-4.8) k/uL APTT (22.0-30.0) sec D-Dimer (<0.60) mg/L FEU BUN 27 H (9-20) mg/dL Creatinine 1.41 H (0.66-1.25) mg/dL Glucose (74-99) mg/dL POC Glucose (mg/dL) (70-110) mg/dL Procalcitonin (0.02-0.09) ng/mL Thrombosis Risk Factor Assmnt - Choose All That Apply Any of the Below Risk Factors Present?: Yes Each Factor Represents 1 point: Medical pt on bed rest, Serious lung disease incl. pneumonia (< 1month) Each Risk Factor Represents 3 Points: Age 75 years or older Thrombosis Risk Factor Assessment Total Risk Factor Score: 5 Thrombosis Risk Factor Assessment Level: High Risk
--- NOTE | 2022-08-01 13:37 | P.CNPUL ---
History of Present Illness Consult date: 08/01/22 Requesting physician: Nallely Wolff Reason for consult: lung mass Chief complaint: Syncope History of present illness: evaluating this patient today 08/01/2022 because of a new consult placed for a new right lung lesion found incidentally on CAT scan angiogram of the chest. this is a pleasant 87-year-old male who presented to the ER after a syncopal episode at [facility]. patient's reported, that while she was getting communion the patient reportedly passed out and was difficult to arouse for almost 3 minutes. denies that the patient hit his head or had any tonic-clonic like activity. Patient denies any specific complaints such as shortness of breath, fever, cough, hemoptysis, chest pain. patient is currently comfortable, sitting up in the chair, on room air, surrounded by his family. chest x-ray on arrival showed some chronic density in the right lung base consistent with scarring which was not significantly different compared to an older examination, and a clearing infiltrate in the left lung base compared to prior examination from June 2019. a follow up CAT scan angiogram of the chest showed no evidence of pulmonary embolism, some patchy right lower lobe pneumonia, and a 15 mm cavitating lesion in the right upper lobe. patient's pertinent past medical history is positive for COPD, ex-smoker with approximately 15 pack years, previous CVA, hypertension, prostate disorder, temporal arteritis, polymyalgia rheumatica. patient managed to COPD outpatient with Flovent and when necessary albuterol inhaler. He does not follow with a direct care supervisor, and his COPD is managed by his PCP Dr. Limon. he denies any recent weight loss, however, reports a 40 pound weight loss over approximately a decade. currently, patient is wanting to go home, and would rather be worked up outpatient. CBC from today shows a W BC count 11.2, hemoglobin 12.3, hematocrit 38.1, platelet count of 252,000. BMP shows a sodium of 140, potassium 4, chloride 107, serum CO2 25, BUN 27, creatinine 1.41, glucose 99. Procalcitonin was mildly elevated at 0.17. patient did receive azithromycin and Rocephin. negative for coronavirus. Troponins were negative. Review of Systems REVIEW OF SYSTEMS: CONSTITUTIONAL: Denies any recent significant weight loss or weight gain or fever EYES: Denies change in vision. EARS, NOSE, MOUTH, THROAT: Denies headaches, denies sore throat. CARDIOVASCULAR: Denies chest pain, palpitations. admits one episode of syncope RESPIRATORY: Denies shortness of breath, cough, congestion or hemoptysis. GASTROINTESTINAL: Denies change in appetite, denies abdominal pain GENITOURINARY: Denies hematuria, denies infections. MUSKULOSKELETAL: Denies pain, denies swelling. INTEGUMENTARY: Denies rash, denies eczema. NEUROLOGICAL: Denies recent memory loss, no recent seizure activity. PSYCHIATRIC: Denies anxiety, denies depression. HEMATOLOGIC/LYMPHATIC: Denies anemia, denies enlarged lymph nodes. Past Medical History Past Medical History: COPD, Hypertension, Prostate Disorder Additional Past Medical History / Comment(s): AUTOIMMUNE DISORDERS, POLYMYALGIA RHEUMATICA, TEMPORAL ARTERITIS History of Any Multi-Drug Resistant Organisms: None Reported Past Surgical History: Appendectomy, Back Surgery, Tonsillectomy Additional Past Surgical History / Comment(s): MAYCOL CATARACTS Past Anesthesia/Blood Transfusion Reactions: No Reported Reaction Past Psychological History: No Psychological Hx Reported Smoking Status: Never smoker Past Alcohol Use History: Occasional Past Drug Use History: None Reported - Past Family History Father Family Medical History: Renal Disease Medications and Allergies Home Medications Medication Instructions Recorded Confirmed Type Latanoprost [Xalatan 0.005%] 1 drop BOTH EYES HS 01/06/16 07/31/22 History Multivitamins, Thera [Multivitamin 1 tab PO DAILY 01/06/16 07/31/22 History (formulary)] Aspirin EC [Ecotrin Low Dose] 81 mg PO Q48H 06/20/19 07/31/22 History Cyanocobalamin (Vitamin B-12) 1,000 mcg PO DAILY 06/20/19 07/31/22 History [Vitamin B-12] Fish Oil/Dha/Epa [Fish Oil 1,200 1 cap PO DAILY 06/20/19 07/31/22 History mg Fish Oil] Vit C/E/Zn/Coppr/Lutein/Zeaxan 1 cap PO DAILY 06/20/19 07/31/22 History [Preservision Areds 2 Softgel] Ferrous Sulfate [Feosol] 325 mg PO DAILY 07/31/22 07/31/22 History Flovent (Unknown Dose) 1 puff INHALATION DIRECTED 07/31/22 07/31/22 History Levothyroxine Sodium [Synthroid] 25 mcg PO DAILY 07/31/22 07/31/22 History amLODIPine [Norvasc] 5 mg PO DAILY 07/31/22 07/31/22 History Allergies Allergy/AdvReac Type Severity Reaction Status Date / Time levofloxacin Allergy reacted Verified 07/31/22 15:49 with prednisone combination Rfnojhx-XCM-IyM Reductase AdvReac muscle pain Verified 07/31/22 15:49 Inhibitor [Jhsfmhz-Hye-Cyb Reductase Inhibitor] sulfamethoxazole AdvReac Unknown Verified 07/31/22 15:49 [From Bactrim] trimethoprim [From Bactrim] AdvReac Unknown Verified 07/31/22 15:49 Physical Exam Vitals: Vital Signs Temp Pulse Pulse Resp BP BP Pulse Ox 08/01/22 07:26 98.0 F 63 18 149/64 96 08/01/22 03:47 99.1 F 67 18 125/51 95 08/01/22 02:00 98.9 F 68 16 133/55 96 07/31/22 20:00 67 18 07/31/22 18:37 97.8 F 67 18 152/61 97 07/31/22 17:47 98.2 F 65 18 124/71 97 07/31/22 16:45 61 18 120/60 98 07/31/22 16:00 66 18 128/62 97 07/31/22 15:00 68 18 120/63 97 07/31/22 14:10 65 18 131/63 96 07/31/22 13:18 97.6 F 59 L 18 147/68 98 Intake and Output 07/31/22 08/01/22 08/01/22 22:59 06:59 14:59 Intake Total 400 Balance 400 Intake: Oral 400 Other: Voiding Method Toilet # Voids 4 5 1 # Bowel Movements 0 1 Weight 63.503 kg GENERAL EXAM: Alert, active,87-year-old male, comfortable in no apparent distress. HEAD: Normocephalic and atraumatic EYES: Normal reaction of pupils, equal size. NOSE: Clear with pink turbinates. THROAT: No erythema or exudates. NECK: No masses, no JVD. CHEST: No chest wall deformity. LUNGS: Equal air entry with no crackles, wheeze, rhonchi or dullness. on room air No conversational dyspnea or accessory muscle use. CVS: S1 and S2 normal with no audible murmur, regular rhythm. ABDOMEN: No hepatosplenomegaly, normal bowel sounds, no guarding or rigidity. SPINE: No scoliosis or deformity SKIN: No rashes CENTRAL NERVOUS SYSTEM: No focal deficits, tone is normal in all 4 extremities. EXTREMITIES: There is no peripheral edema, clubbing, or cyanosis. Peripheral pulses are intact. Results - Laboratory Findings CBC and BMP: 07/31/22 17:42 07/31/22 17:42 PT/INR, D-dimer PT 10.5 sec (9.0-12.0) 07/31/22 14:10 INR 1.0 (<1.2) 07/31/22 14:10 D-Dimer 1.22 mg/L FEU (<0.60) H 07/31/22 14:10 Abnormal lab findings: Abnormal Labs 07/31/22 07/31/22 07/31/22 13:34 14:10 14:10 WBC 15.3 H RBC Hgb Hct Neutrophils # 13.4 H Lymphocytes # 0.8 L APTT 21.8 L D-Dimer 1.22 H BUN Creatinine Glucose POC Glucose (mg/dL) 134 H Procalcitonin 07/31/22 07/31/22 07/31/22 14:10 17:42 17:42 WBC 11.2 H RBC 4.02 L Hgb 12.3 L Hct 38.1 L Neutrophils # 9.6 H Lymphocytes # 0.8 L APTT D-Dimer BUN 28 H Creatinine 1.57 H Glucose 131 H POC Glucose (mg/dL) Procalcitonin 0.17 H 07/31/22 17:42 WBC RBC Hgb Hct Neutrophils # Lymphocytes # APTT D-Dimer BUN 27 H Creatinine 1.41 H Glucose POC Glucose (mg/dL) Procalcitonin - Diagnostic Findings Chest x-ray: image reviewed CT scan - chest: image reviewed Assessment and Plan Assessment: a 15 mm right upper lobe cavitating lesion which could represent pneumonia versus malignancy. I would recommend following up with an outpatient PET scan COPD currently stable and managed with maintenance Flovent and as needed albuterol inhaler outpatient acute on chronic kidney disease Ex-smoker with 15 pack years hypertension Temporal arteritis Polymyalgia rheumatica Plan: patient's medications, labs, CAT scan angiogram, chest x-ray were reviewed we will follow-up on right upper lung lesion with an outpatient PET scan we'll schedule office visit to discuss results, and determine further treatment plan. would consider short course of empiric oral antibiotics to be completed outpatient. I have personally seen and examined the patient, performed the documentation and the assessment and plan as written. Number of minutes spent on the visit: . 20 no cough no chest pain. Time with Patient: Greater than 30
--- NOTE | 2022-08-01 15:39 | CDI ---
Documentation Clarification Form Date: 08/01/2022 3:37:45 PM From: Sophia Cheng RN, CCDS Admit Date: 07/31/2022 4:15:00 PM Patient Name: Imer Sharp Visit Number: [id number] Discharge Date: ATTENTION: The Clinical Documentation Specialists (CDI) and [facility] Coding Staff appreciate your assistance in clarifying documentation. Please respond to the clarification below the line at the bottom and electronically sign. The CDI & [facility] Coding staff will review the response and follow-up if needed. Please note: Queries are made part of the Legal Health Record. If you have any questions, please contact the author of this message via ITS. Dr. Nallely Wolff Unspecified CKD is documented the H/P. Additional clarification regarding the stage of CKD is requested. History/Risk Factors: COPD, Hypertension, Prostate disorder, Autoimmune disorder, Polymyalgia Rheumatica, Temporal Arteritis, chronic kidney disease (per H/P) Patients Historical CR 1.3 Clinical Indicators: 87-year-old male present with complaint of passing out episode at [facility]. Per H/P patient does have chronic kidney disease with baseline creatinine of around 1.3 present creatinine is around1.4. 07/31 @ 15:59 BUN 28, CR1.57 GFR: 39 07/31 @ 19:59 BUN 27 CR 1.41 GFR 44 Treatment: .9 NS 500 MLS Bolus 07/31 Please clarify the stage of the CKD, if known: [ ] CKD Stage 1 (GFR > 90) [ ] CKD Stage 2 (GFR 60-89) [ x ] CKD Stage 3 (GFR 30-59) [ ] CKD Stage 3a (GFR 45-59) [ ] CKD Stage 3b (GFR 30-44) [ ] CKD Stage 4 (GFR 15-29) [ ] Other, please specify [ ] Unable to determine (Template Last revised: August 2020) MTDD
== END 2022-08-01 15:22 | disposition home or self-care (01) | DRG 312 ==
LOC: EC 13:16 → 5NMEDONC 16:15
PROVIDERS: ADMIT Hospitalist; ATTEND Hospitalist
DX: R55 Syncope and collapse (principal); N17.9 Acute kidney failure, unspecified; J44.9 Chronic obstructive pulmonary disease, unspecified; N40.0 Benign prostatic hyperplasia without lower urinary tract symptoms; M31.5 Giant cell arteritis with polymyalgia rheumatica; R91.8 Other nonspecific abnormal finding of lung field; R79.1 Abnormal coagulation profile; N18.30 Chronic kidney disease, stage 3 unspecified; D72.829 Elevated white blood cell count, unspecified; I12.9 Hypertensive chronic kidney disease with stage 1 through stage 4 chronic kidney disease, or unspecified chronic kidney disease; Z20.822 Contact with and (suspected) exposure to COVID-19; Z86.73 Personal history of transient ischemic attack (TIA), and cerebral infarction without residual deficits; Z79.899 Other long term (current) drug therapy; Z79.890 Hormone replacement therapy; Z79.51 Long term (current) use of inhaled steroids; Z87.891 Personal history of nicotine dependence; Z88.1 Allergy status to other antibiotic agents; Z88.2 Allergy status to sulfonamides; Z88.8 Allergy status to other drugs, medicaments and biological substances
CPT/HCPCS: 36415; 71046; 71275; 80048; 80053; 84145; 84484; 85025; 85379; 85610; 85730; 87040; 87635; 93005; 96365; 96368; 99285

== ENCOUNTER 2023-03-05 15:49 | Emergency (ER) | payer MEDICARE, BC ==
[2023-03-05 16:13] VITALS: RESP 18
--- NOTE | 2023-03-05 16:40 | ED ---
SOB HPI - General Chief Complaint: Shortness of Breath Stated Complaint: SOB Time Seen by Provider: 03/05/23 16:30 Source: patient, family Mode of arrival: wheelchair - History of Present Illness Initial Comments: 87-year-old male presenting with chief complaint of shortness of breath. Patient states shortness of breath has been gradually worsening over the last week with significant worsening today. Denies chest pain. States that shortness of breath does not worsen with exertion. States that he has been coughing and feels as though it is productive but he is unsure what color the sputum is. No fevers. No abdominal pain, nausea, vomiting. No lower extremity swelling. No palpitations. He does feel generally weak and fatigued. Has not smoked since the 1960s. - Related Data Home Medications Medication Instructions Recorded Confirmed Latanoprost [Xalatan 0.005%] 1 drop BOTH EYES HS 01/06/16 07/31/22 Multivitamins, Thera [Multivitamin 1 tab PO DAILY 01/06/16 07/31/22 (formulary)] Aspirin EC [Ecotrin Low Dose] 81 mg PO Q48H 06/20/19 07/31/22 Cyanocobalamin (Vitamin B-12) 1,000 mcg PO DAILY 06/20/19 07/31/22 [Vitamin B-12] Fish Oil/Dha/Epa [Fish Oil 1,200 1 cap PO DAILY 06/20/19 07/31/22 mg Fish Oil] Vit C/E/Zn/Coppr/Lutein/Zeaxan 1 cap PO DAILY 06/20/19 07/31/22 [Preservision Areds 2 Softgel] Ferrous Sulfate [Feosol] 325 mg PO DAILY 07/31/22 07/31/22 Flovent (Unknown Dose) 1 puff INHALATION DIRECTED 07/31/22 07/31/22 Levothyroxine Sodium [Synthroid] 25 mcg PO DAILY 07/31/22 07/31/22 amLODIPine [Norvasc] 5 mg PO DAILY 07/31/22 07/31/22 Previous Rx's Medication Instructions Recorded Azithromycin [Zithromax Z Pack] 1 tab PO DIRECTED #6 tab 03/05/23 predniSONE 50 mg PO DAILY 5 Days #5 tab 03/05/23 Allergies Allergy/AdvReac Type Severity Reaction Status Date / Time levofloxacin Allergy reacted Verified 03/05/23 16:13 with prednisone combination Xgworqv-AVI-SfE Reductase AdvReac muscle pain Verified 03/05/23 16:13 Inhibitor [Itbnbgg-Hpj-Odp Reductase Inhibitor] sulfamethoxazole AdvReac Unknown Verified 03/05/23 16:13 [From Bactrim] trimethoprim [From Bactrim] AdvReac Unknown Verified 03/05/23 16:13 Review of Systems ROS Statement: Those systems with pertinent positive or pertinent negative responses have been documented in the HPI. ROS Other: All systems not noted in ROS Statement are negative. Past Medical History Past Medical History: COPD, Hypertension, Prostate Disorder Additional Past Medical History / Comment(s): AUTOIMMUNE DISORDERS, POLYMYALGIA RHEUMATICA, TEMPORAL ARTERITIS History of Any Multi-Drug Resistant Organisms: None Reported Past Surgical History: Appendectomy, Back Surgery, Tonsillectomy Additional Past Surgical History / Comment(s): MAYCOL CATARACTS Past Anesthesia/Blood Transfusion Reactions: No Reported Reaction Past Psychological History: No Psychological Hx Reported Smoking Status: Never smoker Past Alcohol Use History: Occasional Past Drug Use History: None Reported - Past Family History Father Family Medical History: Renal Disease General Exam Limitations: no limitations General appearance: alert, in no apparent distress Head exam: Present: atraumatic, normocephalic, normal inspection Eye exam: Present: normal appearance, EOMI Neck exam: Present: normal inspection, full ROM Respiratory exam: Present: normal lung sounds bilaterally, rhonchi (L sided). Absent: respiratory distress, wheezes, rales, stridor, accessory muscle use Cardiovascular Exam: Present: regular rate, normal rhythm, normal heart sounds. Absent: systolic murmur, diastolic murmur, rubs, gallop, clicks Extremities exam: Absent: pedal edema Neurological exam: Present: alert, oriented X3, CN II-XII intact Psychiatric exam: Present: normal affect, normal mood Skin exam: Present: warm, dry, intact, normal color. Absent: rash Course Vital Signs 03/05/23 03/05/23 03/05/23 16:08 17:00 18:00 Temperature 98.8 F Pulse Rate 89 64 66 Respiratory 18 16 18 Rate Blood Pressure 152/71 157/73 160/74 O2 Sat by Pulse 95 97 96 Oximetry 03/05/23 03/05/23 03/05/23 18:21 18:27 18:37 Temperature Pulse Rate 74 68 69 Respiratory 18 Rate Blood Pressure 173/84 O2 Sat by Pulse 95 Oximetry 03/05/23 19:39 Temperature 97.5 F L Pulse Rate 74 Respiratory 18 Rate Blood Pressure 159/79 O2 Sat by Pulse 94 L Oximetry Medical Decision Making - Medical Decision Making Was pt. sent in by a medical professional or institution ([employer] Mathis, HIGH ENERGY FORMING EQUIPMENT OPERATOR, urgent care, hospital, or half-way...) When possible be specific @ -No Did you speak to anyone other than the patient for history (EMS, parent, family, police, friend...)? What history was obtained from this source @ -No Did you review nursing and triage notes (agree or disagree)? Why? @ -I reviewed and agree with nursing and triage notes Were old charts reviewed (outside hosp., previous admission, EMS record, old EKG , old radiological studies, urgent care reports/EKG's, half-way records)? Report findings @ -No old charts were reviewed Differential Diagnosis (chest pain, altered mental status, abdominal pain women, abdominal pain men, vaginal bleeding, weakness, fever, dyspnea, syncope, headache, dizziness, GI bleed, back pain, seizure, CVA, palpatations, mental health, musculoskeletal)? @ -MDM Differential Dyspnea: Coronary syndrome, arrhythmia, tamponade, asthma, COPD, pulmonary embolism, pneumonia, pneumothorax, pulmonary effusion, anaphylaxis, diabetic ketoacidosis, flailed chest, pulmonary contusion, diaphragmatic rupture, anemia, neuro muscular this is not meant to be an all-inclusive list. EKG interpreted by me (3pts min.). @ -Sinus rhythm with occasional supraventricular premature complexes ventricular rate 64. SC interval 142. QRS 87. QT 366. QTC 394. X-rays interpreted by me (1pt min.). @ -Chest x-ray shows no acute cardiopulmonary disease. There are COPD changes. CT interpreted by me (1pt min.). @ -None done U/S interpreted by me (1pt. min.). @ -None done What testing was considered but not performed or refused? (CT, X-rays, U/S, labs)? Why? @ -None What meds were considered but not given or refused? Why? @ -None Did you discuss the management of the patient with other professionals (professionals i.e. [employer] Mathis, HIGH ENERGY FORMING EQUIPMENT OPERATOR, lab, RT, psych nurse, social media community manager, tank truck milk receiver, te acher, antisubmarine weapons officer, housing case manager)? Give summary @ -No Was smoking cessation discussed for >3mins.? @ -No Was critical care preformed (if so, how long)? @ -No Were there social determinants of health that impacted care today? How? (Homelessness, low income, unemployed, alcoholism, drug addiction, transportation, low edu. Level, literacy, decrease access to med. care, detention, rehab)? @ -No Was there de-escalation of care discussed even if they declined (Discuss DNR or withdrawal of care, Hospice)? DNR status @ -No What co-morbidities impacted this encounter? (DM, HTN, Smoking, COPD, CAD, Cancer, CVA, ARF, Chemo, Hep., AIDS, mental health diagnosis, sleep apnea, morbid obesity)? @ -COPD Was patient admitted / discharged? Hospital course, mention meds given and rou te, prescriptions, significant lab abnormalities, going to OR and other pertinent info. @ -87-year-old male presenting with chief complaint of shortness of breath that started today. No chest pain. No lower extremity swelling. History of COPD. On physical examination mild wheezes are heard on the left side. Lab work shows no leukocytosis. Negative troponin and EKG shows no ischemic changes. Patient is negative for influenza, RSV, and Covid. Chest x-ray shows no acute process. Patient reports improvement after DuoNeb breathing treatment. He'll be treated for COPD exacerbation. Patient would like to be discharged home, I believe this is reasonable. He tells me that he does have an albuterol rescue inhaler at home. He is provided with a 5 day supply of prednisone 50 mg and Zithromax. Follow-up with PCP. Report back to ER with any new or worsening symptoms. Discussed return parameters and answered all questions. Patient conveyed verbal understanding and agreed to the plan. I discussed this case in detail with my attending Dr. Khan Undiagnosed new problem with uncertain prognosis? @ -No Drug Therapy requiring intensive monitoring for toxicity (Heparin, Nitro, Insulin, Cardizem)? @ -No Were any procedures done? @ -No Diagnosis/symptom? @ -COPD exacerbation Acute, or Chronic, or Acute on Chronic? @ -Acute Uncomplicated (without systemic symptoms) or Complicated (systemic symptoms)? @ -Uncomplicated Side effects of treatment? @ -No Exacerbation, Progression, or Severe Exacerbation? @ -Exacerbation Poses a threat to life or bodily function? How? (Chest pain, [place], [place], pneumonia, PE, COPD, DKA, ARF, appy, cholecystitis, CVA, Diverticulitis, Homicidal, Suicidal, threat to staff... and all critical care pts) @ -Potential but given the patient's presentation at this time likelihood is lower - Lab Data Result diagrams: 03/05/23 16:53 03/05/23 16:53 Lab Results 03/05/23 03/05/23 03/05/23 Range/Units 16:53 16:53 16:53 WBC 8.4 (3.8-10.6) k/uL RBC 4.19 L (4.30-5.90) m/uL Hgb 12.5 L (13.0-17.5) gm/dL Hct 39.0 (39.0-53.0) % MCV 93.1 (80.0-100.0) fL MCH 29.8 (25.0-35.0) pg MCHC 32.0 (31.0-37.0) g/dL RDW 14.3 (11.5-15.5) % Plt Count 258 (150-450) k/uL MPV 7.8 Neutrophils % 78 % Lymphocytes % 11 % Monocytes % 6 % Eosinophils % 4 % Basophils % 0 % Neutrophils # 6.5 (1.3-7.7) k/uL Lymphocytes # 0.9 L (1.0-4.8) k/uL Monocytes # 0.5 (0-1.0) k/uL Eosinophils # 0.3 (0-0.7) k/uL Basophils # 0.0 (0-0.2) k/uL PT (9.0-12.0) sec INR (<1.2) APTT (22.0-30.0) sec Sodium 137 (137-145) mmol/L Potassium 4.1 (3.5-5.1) mmol/L Chloride 103 (98-107) mmol/L Carbon Dioxide 25 (22-30) mmol/L Anion Gap 9 mmol/L BUN 23 H (9-20) mg/dL Creatinine 1.28 H (0.66-1.25) mg/dL Est GFR (CKD-EPI)AfAm 57 (>60 ml/min/1.73 sqM) Est GFR (CKD-EPI)NonAf 49 (>60 ml/min/1.73 sqM) Glucose 168 H (74-99) mg/dL Plasma Lactic Acid Carl 1.6 (0.7-2.0) mmol/L Calcium 9.2 (8.4-10.2) mg/dL Total Bilirubin 0.4 (0.2-1.3) mg/dL AST 21 (17-59) U/L ALT 14 (4-49) U/L Alkaline Phosphatase 59 (38-126) U/L Troponin I (0.000-0.034) ng/mL Total Protein 6.7 (6.3-8.2) g/dL Albumin 3.7 (3.5-5.0) g/dL Influenza Type A (PCR) (Not Detectd) Influenza Type B (PCR) (Not Detectd) RSV (PCR) (Not Detectd) SARS-CoV-2 (PCR) (Not Detectd) 03/05/23 03/05/23 03/05/23 Range/Units 16:53 16:53 16:53 WBC (3.8-10.6) k/uL RBC (4.30-5.90) m/uL Hgb (13.0-17.5) gm/dL Hct (39.0-53.0) % MCV (80.0-100.0) fL MCH (25.0-35.0) pg MCHC (31.0-37.0) g/dL RDW (11.5-15.5) % Plt Count (150-450) k/uL MPV Neutrophils % % Lymphocytes % % Monocytes % % Eosinophils % % Basophils % % Neutrophils # (1.3-7.7) k/uL Lymphocytes # (1.0-4.8) k/uL Monocytes # (0-1.0) k/uL Eosinophils # (0-0.7) k/uL Basophils # (0-0.2) k/uL PT 10.4 (9.0-12.0) sec INR 1.0 (<1.2) APTT 24.5 (22.0-30.0) sec Sodium (137-145) mmol/L Potassium (3.5-5.1) mmol/L Chloride (98-107) mmol/L Carbon Dioxide (22-30) mmol/L Anion Gap mmol/L BUN (9-20) mg/dL Creatinine (0.66-1.25) mg/dL Est GFR (CKD-EPI)AfAm (>60 ml/min/1.73 sqM) Est GFR (CKD-EPI)NonAf (>60 ml/min/1.73 sqM) Glucose (74-99) mg/dL Plasma Lactic Acid Carl (0.7-2.0) mmol/L Calcium (8.4-10.2) mg/dL Total Bilirubin (0.2-1.3) mg/dL AST (17-59) U/L ALT (4-49) U/L Alkaline Phosphatase (38-126) U/L Troponin I <0.012 (0.000-0.034) ng/mL Total Protein (6.3-8.2) g/dL Albumin (3.5-5.0) g/dL Influenza Type A (PCR) Not Detected (Not Detectd) Influenza Type B (PCR) Not Detected (Not Detectd) RSV (PCR) Not Detected (Not Detectd) SARS-CoV-2 (PCR) Not Detected (Not Detectd) Disposition Clinical Impression: COPD exacerbation Disposition: HOME SELF-CARE Condition: Good Instructions (If sedation given, give patient instructions): COPD (Chronic Obstructive Pulmonary Disease) (ED) Additional Instructions: Follow-up with PCP. Report back to ER with any new or worsening symptoms. Take medication as prescribed. Prescriptions: predniSONE 50 mg PO DAILY 5 Days #5 tab Azithromycin [Zithromax Z Pack] 1 tab PO DIRECTED #6 tab Is patient prescribed a controlled substance at d/c from ED?: No Referrals: Yovani Everett MD [Primary Care Provider] - 1-2 days Time of Disposition: 19:23
--- NOTE | 2023-03-05 17:16 | XR ---
EXAMINATION TYPE: XR chest 2V DATE OF EXAM: 03/05/2023 5:10 PM COMPARISON: Chest radiographs from 08/01/2022 TECHNIQUE: XR chest 2V Frontal and lateral views of the chest. CLINICAL INDICATION:Male, 87 years old with history of shortness of breath; FINDINGS: Lungs/Pleura: There is flattening of the diaphragm with increased lucency of the lungs. No evidence o f pneumothorax, pleural effusion or focal consolidation. Pulmonary vascularity: Unremarkable. Heart/mediastinum: Cardiomediastinal silhouette is unremarkable. Musculoskeletal: No acute osseous pathology. IMPRESSION: 1. No acute cardiopulmonary disease process. 2. COPD changes.
[2023-03-05 17:17] LABS: Basophils % (A) 0 %; Eosinophils # (A) 0.3 k/uL (0-0.7); Eosinophils % (A) 4 %; HGB 12.5 gm/dL (13.0-17.5); Lymphocytes # (A) 0.9 k/uL (1.0-4.8); Lymphocytes % (A) 11 %; MCH 29.8 pg (25.0-35.0); MCV 93.1 fL (80.0-100.0); Mean Platelet Volume 7.8; Monocytes # (A) 0.5 k/uL (0-1.0); Monocytes % (A) 6 %; Neutrophils # (A) 6.5 k/uL (1.3-7.7); Neutrophils % (A) 78 %; Platelet Count 258 k/uL (150-450); RBC 4.19 m/uL (4.30-5.90); RDW 14.3 % (11.5-15.5); WBC 8.4 k/uL (3.8-10.6)
[2023-03-05 17:25] LABS: Partial Thromboplastin Time 24.5 sec (22.0-30.0); Prothrombin Time 10.4 sec (9.0-12.0)
[2023-03-05] MEDS ORDERED: IPRATROPIUM-ALBUTEROL 3 ML NEB INHALATION STA (17:28)
[2023-03-05 17:49] LABS: ALT 14 U/L (4-49); AST 21 U/L (17-59); African American GFR (CKD) 57 (>60 ml/min/1.73 sqM); Albumin 3.7 g/dL (3.5-5.0); Alkaline Phosphatase 59 U/L (38-126); Blood Urea Nitrogen 23 mg/dL (9-20); Calcium 9.2 mg/dL (8.4-10.2); Carbon Dioxide 25 mmol/L (22-30); Chloride 103 mmol/L (98-107); Glucose 168 mg/dL (74-99); Non-African American GFR(CKD) 49 (>60 ml/min/1.73 sqM); Total Bilirubin 0.4 mg/dL (0.2-1.3); Total Protein 6.7 g/dL (6.3-8.2)
[2023-03-05 17:51] LABS: Anion Gap 9 mmol/L; Potassium 4.1 mmol/L (3.5-5.1); Sodium 137 mmol/L (137-145)
[2023-03-05] MEDS ORDERED: methylPREDNISolone SOD SUCCI 125 MG/2 ML VIAL IV STA (19:12)
[2023-03-05 19:42] VITALS: BP 159/79; PULSE 74; TEMP 97.5
== END 2023-03-05 19:49 | disposition home or self-care (01) ==
LOC: EC 15:49
DX: J44.1 Chronic obstructive pulmonary disease with (acute) exacerbation (principal); I10 Essential (primary) hypertension; Z88.1 Allergy status to other antibiotic agents; Z88.8 Allergy status to other drugs, medicaments and biological substances; Z88.2 Allergy status to sulfonamides; Z79.82 Long term (current) use of aspirin; Z79.899 Other long term (current) drug therapy; Z20.822 Contact with and (suspected) exposure to COVID-19
CPT/HCPCS: 36415; 94640; 93005; 80053; 83605; 84484; 85025; 85610; 85730; 87636; 71046; 99285; 96374; J2930

== ENCOUNTER 2023-03-11 11:31 | Emergency (ER) | payer MEDICARE, BC ==
[2023-03-11] MEDS ORDERED: IPRATROPIUM-ALBUTEROL 3 ML NEB INHALATION STA (12:21)
[2023-03-11 12:44] LABS: Basophils % (A) 0 %; Eosinophils # (A) 0.1 k/uL (0-0.7); Eosinophils % (A) 1 %; HCT 30.4 % (39.0-53.0); Lymphocytes # (A) 1.4 k/uL (1.0-4.8); Lymphocytes % (A) 10 %; MCH 29.6 pg (25.0-35.0); MCHC 32.4 g/dL (31.0-37.0); MCV 91.5 fL (80.0-100.0); Mean Platelet Volume 7.2; Monocytes # (A) 1.2 k/uL (0-1.0); Monocytes % (A) 9 %; Neutrophils # (A) 10.6 k/uL (1.3-7.7); Neutrophils % (A) 79 %; Platelet Count 403 k/uL (150-450); RBC 3.32 m/uL (4.30-5.90); RDW 14.2 % (11.5-15.5); WBC 13.4 k/uL (3.8-10.6)
--- NOTE | 2023-03-11 12:44 | XR ---
EXAMINATION TYPE: XR chest 2V DATE OF EXAM: 03/11/2023 COMPARISON: 03/05/2023 HISTORY: 87-year-old male shortness breath, dyspnea TECHNIQUE: AP and lateral views FINDINGS: Heart normal size. Aorta and pulmonary vasculature within normal limits. Mild patchy opacity at the r ight base. Mild hyperinflation. No consolidation or pleural effusion. IMPRESSION: COPD. Mild patchy right basilar atelectasis versus early infiltrate. Clinically correlate.
[2023-03-11 12:52] LABS: INR 1.1 (<1.2); Prothrombin Time 11.4 sec (9.0-12.0)
[2023-03-11 12:53] LABS: Partial Thromboplastin Time 22.2 sec (22.0-30.0)
[2023-03-11 12:58] LABS: HGB 9.8 gm/dL (13.0-17.5)
[2023-03-11 12:59] LABS: African American GFR (CKD) 64 (>60 ml/min/1.73 sqM); Anion Gap 6 mmol/L; Blood Urea Nitrogen 33 mg/dL (9-20); Calcium 9.4 mg/dL (8.4-10.2); Carbon Dioxide 28 mmol/L (22-30); Chloride 101 mmol/L (98-107); Glucose 126 mg/dL (74-99); Magnesium 1.8 mg/dL (1.6-2.3); Non-African American GFR(CKD) 55 (>60 ml/min/1.73 sqM); Potassium 3.8 mmol/L (3.5-5.1); Sodium 135 mmol/L (137-145)
[2023-03-11 13:06] LABS: NT-Pro-B-Type Natriuretic Pept 641 pg/mL
--- NOTE | 2023-03-11 13:26 | ED ---
General Adult HPI - General Chief complaint: Shortness of Breath Stated complaint: SEUN Time Seen by Provider: 03/11/23 11:55 Source: patient, family Mode of arrival: wheelchair Limitations: no limitations - History of Present Illness Initial comments: Dictation was produced using [employer] dictation software. please excuse any grammatical, word or spelling errors. Chief Complaint: 87-year-old male with dyspnea History of Present Illness: Patient's 87-year-old male presents emergency department for dyspnea. Patient was seen in emergency department asked week for similar symptoms. States that he was discharged with prescription for Zithromax and prednisone. States that he felt fine while he was on Zithromax however his symptoms return. Patient history of COPD. He has not had a cigarette in 16 years. Denies any fever. The ROS documented in this emergency department record has been reviewed and confirmed by me. Those systems with pertinent positive or negative responses have been documented in the HPI. All other systems are other negative and/or noncontributory. - Related Data Home Medications Medication Instructions Recorded Confirmed Latanoprost [Xalatan 0.005%] 1 drop BOTH EYES HS 01/06/16 03/11/23 Multivitamins, Thera [Multivitamin 1 tab PO DAILY 01/06/16 03/11/23 (formulary)] Cyanocobalamin (Vitamin B-12) 1,000 mcg PO DAILY 06/20/19 03/11/23 [Vitamin B-12] Fish Oil/Dha/Epa [Fish Oil 1,200 1 cap PO DAILY 06/20/19 03/11/23 mg Fish Oil] Vit C/E/Zn/Coppr/Lutein/Zeaxan 1 cap PO BID 06/20/19 03/11/23 [Preservision Areds 2 Softgel] Flovent (Unknown Dose) 2 puff INHALATION DIRECTED 07/31/22 03/11/23 Levothyroxine Sodium [Synthroid] 25 mcg PO DAILY 07/31/22 03/11/23 amLODIPine [Norvasc] 5 mg PO DAILY 07/31/22 03/11/23 Albuterol Inhaler [Ventolin Hfa 2 puff INHALATION RT-Q6H PRN 03/11/23 03/11/23 Inhaler] Previous Rx's Medication Instructions Recorded Albuterol Inhaler [Ventolin Hfa 1 - 2 puff INHALATION RT-Q6H PRN 03/11/23 Inhaler] #1 each Allergies Allergy/AdvReac Type Severity Reaction Status Date / Time levofloxacin Allergy reacted Verified 03/11/23 14:12 with prednisone combination [id number]-[id number] Reductase AdvReac muscle pain Verified 03/11/23 14:12 Inhibitor [Amyuxbn-Cjc-Fqp Reductase Inhibitor] sulfamethoxazole AdvReac Unknown Verified 03/11/23 14:12 [From Bactrim] trimethoprim [From Bactrim] AdvReac Unknown Verified 03/11/23 14:12 Review of Systems ROS Statement: Those systems with pertinent positive or pertinent negative responses have been documented in the HPI. ROS Other: All systems not noted in ROS Statement are negative. Past Medical History Past Medical History: COPD, Hypertension, Prostate Disorder Additional Past Medical History / Comment(s): AUTOIMMUNE DISORDERS, POLYMYALGIA RHEUMATICA, TEMPORAL ARTERITIS History of Any Multi-Drug Resistant Organisms: None Reported Past Surgical History: Appendectomy, Back Surgery, Tonsillectomy Additional Past Surgical History / Comment(s): MAYCOL CATARACTS Past Anesthesia/Blood Transfusion Reactions: No Reported Reaction Past Psychological History: No Psychological Hx Reported Smoking Status: Never smoker Past Alcohol Use History: Occasional Past Drug Use History: None Reported - Past Family History Father Family Medical History: Renal Disease General Exam - General Exam Comments Initial Comments: PHYSICAL EXAM: General Impression: Alert and oriented x3, not in acute distress HEENT: Normocephalic atraumatic, extra-ocular movements intact, pupils equal and reactive to light bilaterally, mucous membranes moist. Cardiovascular: Heart regular rate and rhythm Chest: Able to complete full sentences, no retractions, no tachypnea Abdomen: abdomen soft, non-tender, non-distended, no organomegaly Musculoskeletal: Pulses present and equal in all extremities, no peripheral edema Motor: no focal deficits noted Neurological: CN II-XII grossly intact, no focal motor or sensory deficits noted Skin: Intact with no visualized rashes Psych: Normal affect and mood Rectal exam: No gross blood Limitations: no limitations Course Vital Signs 03/11/23 03/11/23 03/11/23 11:32 11:44 12:53 Temperature 98.1 F Pulse Rate 62 70 Respiratory 20 24 Rate Blood Pressure 156/69 O2 Sat by Pulse 96 Oximetry 03/11/23 13:01 Temperature Pulse Rate 76 Respiratory Rate Blood Pressure O2 Sat by Pulse Oximetry EKG Findings - EKG Comments: EKG Findings:: My EKG interpretation: Ventricular rate 90, A. fib, QRS 92, QTC 292. No CT prolongation, no QTC prolongation, no ST or T-wave changes noted. Compared to EKG from 03/05/2023 with new-onset A. fib versus sinus arrhythmia Medical Decision Making - Medical Decision Making Was pt. sent in by a medical professional or institution (, PA, CHILD CAREGIVER, urgent care, hospital, or skilled nursing...) When possible be specific @ -No Did you speak to anyone other than the patient for history (EMS, parent, family, police, friend...)? What history was obtained from this source @ -No Did you review nursing and triage notes (agree or disagree)? Why? @ -I reviewed and agree with nursing and triage notes Were old charts reviewed (outside hosp., previous admission, EMS record, old EKG, old radiological studies, urgent care reports/EKG's, skilled nursing records)? Report findings @ -No old charts were reviewed Differential Diagnosis (chest pain, altered mental status, abdominal pain women, abdominal pain men, vaginal bleeding, musculoskeletal, weakness, fever, dyspnea, syncope, headache, dizziness, GI bleed, back pain, seizure, CVA, palpatations, mental health)? @ -Differential Dyspnea: Coronary syndrome, arrhythmia, tamponade, asthma, COPD, pulmonary embolism, pneumonia, pneumothorax, pulmonary effusion, anaphylaxis, diabetic ketoacidosis, flailed chest, pulmonary contusion, diaphragmatic rupture, anemia, neuromuscular, this is not meant to be an all-inclusive list. EKG interpreted by me (3pts min.). @ -See above. No obvious fibrillatory P waves X-rays interpreted by me (1pt min.). @ -Chest x-ray shows atelectasis versus infiltrate CT interpreted by me (1pt min.). @ -None done U/S interpreted by me (1pt. min.). @ -None done What testing was considered but not performed or refused? (CT, X-rays, U/S, labs)? Why? @ -None What meds were considered but not given or refused? Why? @ -None Did you discuss the management of the patient with other professionals (professionals i.e. Dr., PA, CHILD CAREGIVER, lab, RT, psych nurse, social service liaison, golf coach, teacher, amphibious operations officer, family independence case manager)? Give summary @ -No Was smoking cessation discussed for >3mins.? @ -No Was critical care preformed (if so, how long)? @ -No Were there social determinants of health that impacted care today? How? (Homelessness, low income, unemployed, alcoholism, drug addiction, transportation, low edu. Level, literacy, decrease access to med. care, senior care, rehab)? @ -No Was there de-escalation of care discussed even if they declined (Discuss DNR or withdrawal of care, Hospice)? DNR status @ -No What co-morbidities impacted this encounter? (DM, HTN, Smoking, COPD, CAD, Cancer, CVA, ARF, Chemo, Hep., AIDS, mental health diagnosis, sleep apnea, morbid obesity)? @ -None Was patient admitted / discharged? Hospital course, mention meds given and route, prescriptions, significant lab abnormalities, going to OR and other pertinent info. @ -87-year-old male presents to the emergency department for dyspnea. Patient is well-appearing at the bedside. Not hypoxic. Non-dyspneic appearing. He does have some rhonchi in the right lung guerrero. Laboratory evaluation obtained. Patient is leukocytosis of 13.4. He is currently on prednisone. Hemoglobin 9.8. Coag panel metabolic panel is unremarkable. So occult blood is negative. Chest x-ray shows atelectasis versus infiltrate in the right lung guerrero. Completed a course of Z-Serafin. Patient is well-appearing. Disposition options were discussed. Patient I believe is not a candidate for dosing of antibiotics. Patient currently on prednisone. Patient demonstrated his MDI use and is not using his inhaler correctly. Patient counseled by RT for correct inhaler use. Patient otherwise advised to follow up PCP. Undiagnosed new problem with uncertain prognosis? @ -No Drug Therapy requiring intensive monitoring for toxicity (Heparin, Nitro, Insulin, Cardizem)? @ -No Were any procedures done? @ -No Diagnosis/symptom? Acute, or Chronic, or Acute on Chronic? Uncomplicated (without systemic symptoms) or Complicated (systemic symptoms)? @ -1. Dyspnea Side effects of treatment? @ -No Exacerbation, Progression, or Severe Exacerbation? @ -No Poses a threat to life or bodily function? How? (Chest pain, [place], [place], pneumonia, PE, COPD, DKA, ARF, appy, cholecystitis, CVA, Diverticulitis, Homicidal, Suicidal, threat to staff... and all critical care pts) @ -No - Lab Data Result diagrams: 03/11/23 12:29 03/11/23 12:29 Lab Results 03/11/23 03/11/23 03/11/23 Range/Units 12:29 12:29 12:29 WBC 13.4 H (3.8-10.6) k/uL RBC 3.32 L (4.30-5.90) m/uL Hgb 9.8 L D (13.0-17.5) gm/dL Hct 30.4 L (39.0-53.0) % MCV 91.5 (80.0-100.0) fL MCH 29.6 (25.0-35.0) pg MCHC 32.4 (31.0-37.0) g/dL RDW 14.2 (11.5-15.5) % Plt Count 403 (150-450) k/uL MPV 7.2 Neutrophils % 79 % Lymphocytes % 10 % Monocytes % 9 % Eosinophils % 1 % Basophils % 0 % Neutrophils # 10.6 H (1.3-7.7) k/uL Lymphocytes # 1.4 (1.0-4.8) k/uL Monocytes # 1.2 H (0-1.0) k/uL Eosinophils # 0.1 (0-0.7) k/uL Basophils # 0.0 (0-0.2) k/uL PT 11.4 (9.0-12.0) sec INR 1.1 (<1.2) APTT 22.2 (22.0-30.0) sec Sodium 135 L (137-145) mmol/L Potassium 3.8 (3.5-5.1) mmol/L Chloride 101 (98-107) mmol/L Carbon Dioxide 28 (22-30) mmol/L Anion Gap 6 mmol/L BUN 33 H (9-20) mg/dL Creatinine 1.17 (0.66-1.25) mg/dL Est GFR (CKD-EPI)AfAm 64 (>60 ml/min/1.73 sqM) Est GFR (CKD-EPI)NonAf 55 (>60 ml/min/1.73 sqM) Glucose 126 H (74-99) mg/dL Calcium 9.4 (8.4-10.2) mg/dL Magnesium 1.8 (1.6-2.3) mg/dL Troponin I (0.000-0.034) ng/mL NT-Pro-B Natriuret Pep 641 pg/mL Stool Occult Blood (Negative) 03/11/23 03/11/23 Range/Units 12:29 13:20 WBC (3.8-10.6) k/uL RBC (4.30-5.90) m/uL Hgb (13.0-17.5) gm/dL Hct (39.0-53.0) % MCV (80.0-100.0) fL MCH (25.0-35.0) pg MCHC (31.0-37.0) g/dL RDW (11.5-15.5) % Plt Count (150-450) k/uL MPV Neutrophils % % Lymphocytes % % Monocytes % % Eosinophils % % Basophils % % Neutrophils # (1.3-7.7) k/uL Lymphocytes # (1.0-4.8) k/uL Monocytes # (0-1.0) k/uL Eosinophils # (0-0.7) k/uL Basophils # (0-0.2) k/uL PT (9.0-12.0) sec INR (<1.2) APTT (22.0-30.0) sec Sodium (137-145) mmol/L Potassium (3.5-5.1) mmol/L Chloride (98-107) mmol/L Carbon Dioxide (22-30) mmol/L Anion Gap mmol/L BUN (9-20) mg/dL Creatinine (0.66-1.25) mg/dL Est GFR (CKD-EPI)AfAm (>60 ml/min/1.73 sqM) Est GFR (CKD-EPI)NonAf (>60 ml/min/1.73 sqM) Glucose (74-99) mg/dL Calcium (8.4-10.2) mg/dL Magnesium (1.6-2.3) mg/dL Troponin I <0.012 (0.000-0.034) ng/mL NT-Pro-B Natriuret Pep pg/mL Stool Occult Blood Negative (Negative) Disposition Clinical Impression: Dyspnea Disposition: HOME SELF-CARE Condition: Good Instructions (If sedation given, give patient instructions): Dyspnea (ED) Prescriptions: Albuterol Inhaler [Ventolin Hfa Inhaler] 1 - 2 puff INHALATION RT-Q6H PRN #1 each PRN Reason: Dyspnea Is patient prescribed a controlled substance at d/c from ED?: No Referrals: Yovani Everett MD [Primary Care Provider] - 1-2 days Time of Disposition: 14:00
[2023-03-11 15:27] VITALS: BP 167/68; PULSE 72; RESP 18; TEMP 97.8
== END 2023-03-11 15:25 | disposition home or self-care (01) ==
LOC: EC 11:31
DX: R06.00 Dyspnea, unspecified (principal); I10 Essential (primary) hypertension; J44.9 Chronic obstructive pulmonary disease, unspecified; Z79.899 Other long term (current) drug therapy; Z88.6 Allergy status to analgesic agent; Z88.2 Allergy status to sulfonamides; Z88.1 Allergy status to other antibiotic agents; Z88.8 Allergy status to other drugs, medicaments and biological substances; Z79.51 Long term (current) use of inhaled steroids; Z90.49 Acquired absence of other specified parts of digestive tract
CPT/HCPCS: 36415; 71046; 80048; 82272; 83735; 83880; 84484; 85025; 85610; 85730; 93005; 94640; 99285